=== PATIENT | male | born 1990 | race Caucasian/White ===

== ENCOUNTER 2017-03-18 19:40 | Outpatient (CLI) | payer MEDICAID | END 2017-03-18 19:41 | disposition critical access hospital (66) | DX: R73.09 Other abnormal glucose (principal) | CPT/HCPCS: A0425; A0429 ==

== ENCOUNTER 2017-03-18 19:59 | Emergency (ER) | payer MEDICAID ==
[2017-03-18] MEDS: SODIUM CHLORIDE 0.9% 1,000 ML IV ONE ×2 (20:10→20:37)
[2017-03-18] MEDS ORDERED: SODIUM CHLORIDE 0.9% 1,000 ML IV ONE (20:28)
[2017-03-18] MEDS ORDERED: INSULIN REGULAR HUMAN 100 UNIT/1 ML 10 ML MDV IVP STA ×3 (20:28→22:20)
[2017-03-18] MEDS ORDERED: INSULIN REGULAR HUMAN 100 UNIT/1 ML 10 ML MDV ONE ×3 (20:31→22:22)
== END 2017-03-18 22:34 | disposition home or self-care (01) ==
DX: E10.65 Type 1 diabetes mellitus with hyperglycemia (principal); Z79.4 Long term (current) use of insulin; F90.9 Attention-deficit hyperactivity disorder, unspecified type; F43.10 Post-traumatic stress disorder, unspecified
CPT/HCPCS: 36415; 80053; 80178; 82009; 82803; 83690; 96360; 99283; 99285; J1815

== ENCOUNTER 2018-01-23 15:14 | Emergency (ER) | payer MEDICAID ==
[2018-01-23 15:25] VITALS: BP 135/93
--- NOTE | 2018-01-23 16:40 | ED Physician Documentation ---
PD HPI UPPER EXT INJURY - Stated complaint Stated Complaint: LT HAND LAC - Chief complaint Chief Complaint: Laceration - History obtained from History obtained from: Patient, Family - History of Present Illness Location: Left, Hand Type of injury: Laceration Where injury occurred: Home Timing - onset: How many hours ago (1) Timing - duration: Hours (1) Timing - details: Abrupt onset Pain level max: 4 Pain level now: 2 Improved by: Rest Worsened by: Moving, Palpating Associated symptoms: No: Weakness, Numbness, Tingling, Swelling - Additonal information Additional information: lacerated with a pocket knife while whittling wood today. Pt is right handed. Review of Systems Constitutional: denies: Fever, Chills Skin: denies: Rash Musculoskeletal: denies: Neck pain, Back pain Neurologic: denies: Focal weakness, Numbness, Headache PD PAST MEDICAL HISTORY - Past Medical History Past Medical History: Yes Respiratory: Asthma Neuro: Seizure disorder Endocrine/Autoimmune: Type 2 diabetes GI: GERD, Other Psych: Depression, ADD/ADHD, Post traumatic stress disorder - Past Surgical History Past Surgical History: Yes HEENT: Other - Present Medications Home Medications: Ambulatory Orders Medication Instructions Recorded Confirmed traZODone [Desyrel] 1 tab PO DAILY 10/31/15 01/23/18 [place] Carbonate 600 mg PO BID 01/05/16 01/23/18 cloNIDine [Catapres] 1 tab PO BID 04/17/16 01/23/18 Acetaminophen [Tylenol Extra 500 mg PO PRN PRN 04/28/17 01/23/18 Strength] Albuterol Sulf [Ventolin Hfa 1 - 2 puffs INH PRN PRN 04/28/17 01/23/18 Inhaler] Ascorbic Acid [Vitamin C with Ashlee 1,000 mg PO DAILY 04/28/17 01/23/18 Hips] Cholecalciferol (Vitamin D3) 2,000 unit PO DAILY 04/28/17 01/23/18 [Vitamin D] Flunisolide [Aerospan] 8.9 gm IH PRN PRN 04/28/17 01/23/18 SUMAtriptan succinate [Sumatriptan 100 mg PO PRN PRN 04/28/17 01/23/18 Succinate] Insulin Glargine,Hum.rec.anlog 60 unit SQ BID 11/09/17 01/23/18 [Basaglar Kwikpen U-100] Bupropion HCl [Wellbutrin Xl] 300 mg PO DAILY 01/23/18 01/23/18 lamoTRIgine [LaMICtal] 1 tab PO BID 01/23/18 01/23/18 - Allergies Allergies/Adverse Reactions: Allergies Allergy/AdvReac Type Severity Reaction Status Date / Time No Known Drug Allergies Allergy Verified 01/23/18 16:39 - Social History Does the pt smoke?: No Smoking Status: Never smoker Does the pt drink ETOH?: No Does the pt have substance abuse?: No - Immunizations Immunizations are current?: Yes - POLST Patient has POLST: No PD ED PE NORMAL - Vitals Vital signs reviewed: Yes - General General: Alert and oriented X 3, No acute distress - Derm Derm: Warm and dry - Extremities Extremities: Other (L thumb - dorsum of prox phalanx. 2cm linear laceartion. subcutaneous. NVI. tendon intact. no FB. ) - Neuro Neuro: Alert and oriented X 3 Results - Vitals Vitals: Vital Signs - 24 hr 01/23/18 15:23 Temperature 36.8 C Heart Rate 101 H Respiratory 16 Rate Blood Pressure 135/93 H O2 Saturation 98 Oxygen O2 Source Room air Procedures - Laceration (location) L thumb Length in cm: 2 Wound type: Linear, Into subcut fat, Clean Neurovascular status: Sensory intact, Motor intact, Vascular intact Tendon involvement: Tendon intact. No: Tendon Injury Anesthesia: Lidocaine 2% Wound Preparation: Irrigated copiously NS, Wound explored, To the base. No: FB identified Skin layer closure: Nylon, Interrupted, Size #-0 - enter number (4) Other: Patient tolerated well, No complications, Neurovascular intact, Tetanus UTD Complexity: Simple PD MEDICAL DECISION MAKING - ED course Complexity details: re-evaluated patient, considered differential, d/w patient, d/w family ED course: Patient is a 27-year-old male who presents to the emergency department with a left thumb laceration. This was repaired. Tolerated well. Neurovascularly intact. No tendon injury. No foreign body. Warnings of infection and instructions on wound care given at bedside. Also counseled on how to minimize scarring. Patient counseled regarding signs and symptoms for which I believe and urgent re-evaluation would be necessary. Patient with good understanding of and agreement to plan and is comfortable going home at this time This document was made in part using voice recognition software. While efforts are made to proofread this document, sound alike and grammatical errors may occur. Departure - Departure Disposition: 01 Home, Self Care Clinical Impression: Thumb laceration Qualifiers: Encounter type: initial encounter Damage to nail status: without damage Foreign body presence: without foreign body Laterality: left Qualified Code(s): S61.012A - Laceration without foreign body of left thumb without damage to nail , initial encounter Condition: Good Instructions: ED Laceration Hand Follow-Up: Vicente Ramirez MD [Primary Care Provider] - Within 1 week (in 10 days for suture removal) Comments: Keep the wound clean. The sutures should be removed in 10-14 days with your doctor. Return if you notice redness, swelling or drainage from the wound as these could be signs it may be becoming infected. Discharge Date/Time: 01/23/18 17:19
[2018-01-23] MEDS ORDERED: LIDOCAINE 2% 10 ML MDV SUBQ STA (16:45)
== END 2018-01-23 17:19 | disposition home or self-care (01) ==
LOC: ED 15:14
DX: S61.012A Laceration without foreign body of left thumb without damage to nail, initial encounter (principal); W26.0XXA Contact with knife, initial encounter; Y92.009 Unspecified place in unspecified non-institutional (private) residence as the place of occurrence of the external cause; E11.9 Type 2 diabetes mellitus without complications; Z79.4 Long term (current) use of insulin
CPT/HCPCS: 12001; 99282; 99283

== ENCOUNTER 2019-02-22 17:44 | Outpatient (CLI) | payer MEDICAID | END 2019-02-22 17:45 | disposition EMS.NT | LOC: EMS 17:44 | PROVIDERS: ATTEND Surgery | DX: R56.9 Unspecified convulsions (principal); R07.9 Chest pain, unspecified; F41.9 Anxiety disorder, unspecified ==

== ENCOUNTER 2019-02-23 13:50 | Outpatient (CLI) | payer MEDICAID | END 2019-02-23 13:51 | disposition critical access hospital (66) | LOC: EMS 13:50 | PROVIDERS: ATTEND Surgery | DX: R56.9 Unspecified convulsions (principal); R07.9 Chest pain, unspecified | CPT/HCPCS: A0425; A0429; A0999 ==

== ENCOUNTER 2019-02-23 14:32 | Emergency (ER) | payer MEDICAID ==
--- NOTE | 2019-02-23 14:46 | ED Physician Documentation ---
PD HPI SEIZURE - Stated complaint Stated Complaint: SZ - Chief complaint Chief Complaint: Neuro - History obtained from History obtained from: Patient, Family, EMS - History of Present Illness Timing - onset: Today Witnessed: Witnessed Number of seizures: Lasted minutes (1) Description of seizure activity: Generalized Injury during seizure: None Pain level max: 0 Pain level now: 0 Associated symptoms: Chest pain (typical of his seizures). No: None, Unknown, Headache, Vision changes, Palpitations, Diaphoresis, Dyspnea, Nausea / vomiting History of seizures: Known seizure disorder Contributing factors: Changed meds (carbamazepine 1 month ago). No: Off meds, Out of meds, Low blood sugar, Head injury, Substance abuse, EtOH withdrawal, Benzo withdrawal, Overdose, Fever, Sleep deprivation Treatment CATALOGING ASSISTANT: No: Dextrose, Ativan, Valium, Other - Additional information Additional information: sees Dr. Rodriguez, neurology Review of Systems Ten Systems: 10 systems reviewed and negative Constitutional: denies: Fever, Chills Ears: denies: Ear pain Nose: denies: Rhinorrhea / runny nose, Congestion Throat: denies: Sore throat Cardiac: reports: Chest pain / pressure (after the seizure, typical for him) Respiratory: denies: Dyspnea, Cough, Wheezing GI: denies: Abdominal Pain, Vomiting, Diarrhea : denies: Dysuria Skin: denies: Rash Musculoskeletal: denies: Neck pain, Back pain Neurologic: reports: Seizure. denies: Focal weakness, Numbness, Confused, Altered mental status, Headache PD PAST MEDICAL HISTORY - Past Medical History Past Medical History: Yes Respiratory: Asthma Endocrine/Autoimmune: Type 2 diabetes GI: GERD, Other Psych: Depression, ADD/ADHD, Post traumatic stress disorder - Past Surgical History Past Surgical History: Yes HEENT: Other - Present Medications Home Medications: Ambulatory Orders Medication Instructions Recorded Confirmed traZODone [Desyrel] 1 tab PO DAILY 10/31/15 01/23/18 cloNIDine [Catapres] 1 tab PO BID 04/17/16 01/23/18 Acetaminophen [Tylenol Extra 500 mg PO PRN PRN 04/28/17 01/23/18 Strength] Albuterol Sulf [Ventolin Hfa 1 - 2 puffs INH PRN PRN 04/28/17 01/23/18 Inhaler] Ascorbic Acid [Vitamin C with Ashlee 1,000 mg PO DAILY 04/28/17 01/23/18 Hips] Cholecalciferol (Vitamin D3) 2,000 unit PO DAILY 04/28/17 01/23/18 [Vitamin D] Flunisolide [Aerospan] 8.9 gm IH PRN PRN 04/28/17 01/23/18 SUMAtriptan succinate [Sumatriptan 100 mg PO PRN PRN 04/28/17 01/23/18 Succinate] Insulin Glargine [Lantus Solostar] 60 unit SUBQ BID 01/28/18 01/28/18 Insulin Lispro [Humalog Kwikpen 10 unit SUBQ TID PRN 01/28/18 01/28/18 U-100] Aripiprazole [Abilify] 2 mg PO 02/23/19 02/23/19 Carbamazepine 200 mg PO 02/23/19 02/23/19 Fluoxetine HCl 20 mg PO 02/23/19 02/23/19 Lisdexamfetamine Dimesylate 70 mg PO 02/23/19 02/23/19 [Vyvanse] Magnesium Oxide [Magnesium] 400 mg PO 02/23/19 02/23/19 - Allergies Allergies/Adverse Reactions: Allergies Allergy/AdvReac Type Severity Reaction Status Date / Time No Known Drug Allergies Allergy Verified 02/23/19 14:39 - Social History Does the pt smoke?: No Smoking Status: Never smoker Does the pt drink ETOH?: No Does the pt have substance abuse?: No - Immunizations Immunizations are current?: Yes - POLST Patient has POLST: No PD ED PE NORMAL - Vitals Vital signs reviewed: Yes - General General: Alert and oriented X 3, No acute distress, Well developed/nourished - HEENT HEENT: PERRL, Moist mucous membranes - Neck Neck: Supple, no meningeal sign - Cardiac Cardiac: RRR - Respiratory Respiratory: No respiratory distress, Clear bilaterally - Abdomen Abdomen: Soft, Non tender, Non distended - Derm Derm: Warm and dry - Extremities Extremities: No edema, No calf tenderness / cord - Neuro Neuro: Alert and oriented X 3, powerhouse electrician 2-12 intact, No motor deficit, No sensory deficit, Normal speech Results - Vitals Vitals: Vital Signs - 24 hr 02/23/19 14:34 Temperature 37.1 C Heart Rate 91 Respiratory 20 Rate Blood Pressure 122/76 O2 Saturation 99 Oxygen O2 Source Room air - EKG (time done) 1442 Rate: Rate (enter#) (87) Rhythm: NSR Kite: Normal Intervals: Normal [place] QRS: Normal Ischemia: Normal ST segments Computer interpretation: Agree with computer - Labs Labs: Laboratory Tests 02/23/19 02/23/19 02/23/19 15:10 15:10 15:10 WBC 9.5 RBC 5.40 Hgb 15.9 Hct 45.8 MCV 84.8 MCH 29.4 MCHC 34.7 RDW 13.0 Plt Count 217 MPV 6.8 L Neut # (Auto) 6.7 H Lymph # (Auto) 2.2 [place] # (Auto) 0.4 Eos # (Auto) 0.1 Baso # (Auto) 0.1 Absolute Nucleated RBC 0.01 Nucleated RBC % 0.1 Sodium 138 Potassium 3.9 Chloride 105 Carbon Dioxide 23 Anion Gap 10.0 BUN 30 H Creatinine 1.2 Estimated GFR (MDRD) 73 L Glucose 130 H Calcium 9.0 Phosphorus 3.1 Magnesium 2.4 Total Bilirubin 0.5 AST 21 ALT 27 Alkaline Phosphatase 77 Total Protein 6.9 Albumin 4.1 Globulin 2.8 Albumin/Globulin Ratio 1.5 Lipase 32 Carbamazepine 8.8 PD MEDICAL DECISION MAKING - ED course Complexity details: reviewed results, re-evaluated patient, considered differential, d/w patient, d/w family ED course: 28-year-old male with a history of seizures, presents with increased seizures over the past month. His father contacted Dr. rodriguez while in the emergency department and they recommended stopping the Abilify magnesium. No acute lab abnormalities. Tegretol is within therapeutic levels. Patient and family counseled regarding signs and symptoms for which I believe and urgent re- evaluation would be necessary. Patient with good understanding of and agreement to plan and is comfortable going home at this time This document was made in part using voice recognition software. While efforts are made to proofread this document, sound alike and grammatical errors may occur. Departure - Departure Disposition: 01 Home, Self Care Clinical Impression: Recurrent seizures Condition: Good Instructions: ED Seizure Recurrent Follow-Up: Dakota Rodriguez MD [Physician No Access] - Yesenia Dominguez MD [Primary Care Provider] - Within 1 week Comments: Stop the Abilify and magnesium as directed by Dr. Rodriguez today. Return if he worsens.
[2019-02-23 15:20] LABS: BASOPHILS # (AUTO) 0.1 10^3/uL (0.0-0.1); BASOPHILS % (AUTO) 0.7 %; EOSINOPHILS # (AUTO) 0.1 10^3/uL (0.0-0.7); HGB - HEMOGLOBIN 15.9 g/dL (14.0-18.0); LYMPHOCYTES # (AUTO) 2.2 10^3/uL (1.5-3.5); LYMPHOCYTES % (AUTO) 22.9 %; MEAN CORPUSCULAR HEMOGLOBIN 29.4 pg (27.0-31.0); MEAN CORPUSCULAR HGB CONC 34.7 g/dL (32.0-36.0); MEAN CORPUSCULAR VOLUME 84.8 fL (80.0-94.0); MEAN PLATELET VOLUME 6.8 fL (7.4-11.4); MONOCYTES # (AUTO) 0.4 10^3/uL (0.0-1.0); MONOCYTES % (AUTO) 4.6 %; NEUTROPHILS # (AUTO) 6.7 10^3/uL (1.5-6.6); NEUTROPHILS % (AUTO) 70.8 %; PLT - PLATELET COUNT 217 10^3/uL (130-450); WHITE BLOOD COUNT 9.5 x10^3/uL (4.8-10.8)
[2019-02-23 15:31] LABS: ALBUMIN 4.1 g/dL (3.2-5.5); ALBUMIN/GLOBULIN RATIO 1.5 (1.0-2.2); BILIRUBIN,TOTAL 0.5 mg/dL (0.2-1.0); CREATININE 1.2 mg/dL (0.6-1.2); MAGNESIUM 2.4 mg/dL (1.7-2.8); PHOSPHORUS 3.1 mg/dL (2.5-4.6); TOTAL PROTEIN 6.9 g/dL (6.7-8.2)
[2019-02-23 15:52] LABS: CARBAMAZEPINE (TEGRETOL) 8.8 ug/mL
[2019-02-23 16:05] VITALS: BP 132/61
== END 2019-02-23 16:04 | disposition home or self-care (01) ==
LOC: EDUNIT# → ED 14:32
DX: G40.909 Epilepsy, unspecified, not intractable, without status epilepticus (principal); E11.9 Type 2 diabetes mellitus without complications
CPT/HCPCS: 36415; 80053; 80156; 83690; 83735; 84100; 85025; 93005; 99283

== ENCOUNTER 2019-03-02 14:24 | Emergency (ER) | payer MEDICAID ==
--- NOTE | 2019-03-02 14:58 | ED Physician Documentation ---
PD HPI SEIZURE - Stated complaint Stated Complaint: SZ - Chief complaint Chief Complaint: Neuro - History obtained from History obtained from: Patient - History of Present Illness Timing - onset: Today (He was at his mental health appt, he "locked up" with a "seizure." He was unresponsive x 2 minutes, but no report of shaking or sz like activity. 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 This is similar to last week. Hearing command voices, but no SI/HI.) Review of Systems Ten Systems: 10 systems reviewed and negative Eyes: reports: Reviewed and negative Nose: reports: Reviewed and negative Cardiac: reports: Reviewed and negative Respiratory: reports: Reviewed and negative GI: reports: Reviewed and negative PD PAST MEDICAL HISTORY - Past Medical History Respiratory: Asthma Neuro: Seizure disorder Endocrine/Autoimmune: Type 2 diabetes GI: GERD, Other Psych: Depression, ADD/ADHD, Post traumatic stress disorder - Past Surgical History Past Surgical History: Yes HEENT: Other - Present Medications Home Medications: Ambulatory Orders Medication Instructions Recorded Confirmed traZODone [Desyrel] 1 tab PO DAILY 10/31/15 01/23/18 cloNIDine [Catapres] 1 tab PO BID 04/17/16 01/23/18 Acetaminophen [Tylenol Extra 500 mg PO PRN PRN 04/28/17 01/23/18 Strength] Albuterol Sulf [Ventolin Hfa 1 - 2 puffs INH PRN PRN 04/28/17 01/23/18 Inhaler] Ascorbic Acid [Vitamin C with Ashlee 1,000 mg PO DAILY 04/28/17 01/23/18 Hips] Cholecalciferol (Vitamin D3) 2,000 unit PO DAILY 04/28/17 01/23/18 [Vitamin D] Flunisolide [Aerospan] 8.9 gm IH PRN PRN 04/28/17 01/23/18 SUMAtriptan succinate [Sumatriptan 100 mg PO PRN PRN 04/28/17 01/23/18 Succinate] Insulin Glargine [Lantus Solostar] 60 unit SUBQ BID 01/28/18 01/28/18 Insulin Lispro [Humalog Kwikpen 10 unit SUBQ TID PRN 01/28/18 01/28/18 U-100] Aripiprazole [Abilify] 2 mg PO 02/23/19 02/23/19 Carbamazepine 200 mg PO 02/23/19 02/23/19 Fluoxetine HCl 20 mg PO 02/23/19 02/23/19 Lisdexamfetamine Dimesylate 70 mg PO 02/23/19 02/23/19 [Vyvanse] Magnesium Oxide [Magnesium] 400 mg PO 02/23/19 02/23/19 - Allergies Allergies/Adverse Reactions: Allergies Allergy/AdvReac Type Severity Reaction Status Date / Time No Known Drug Allergies Allergy Verified 02/23/19 14:39 - Social History Does the pt smoke?: No Smoking Status: Never smoker Does the pt drink ETOH?: No Does the pt have substance abuse?: No - Family History Family history: reports: Non contributory - Immunizations Immunizations are current?: Yes - POLST Patient has POLST: No PD ED PE NORMAL - Vitals Vital signs reviewed: Yes - General General: Alert and oriented X 3, No acute distress - HEENT HEENT: PERRL, EOMI, Pharynx benign - Neck Neck: Supple, no meningeal sign, No bony TTP - Cardiac Cardiac: RRR, No murmur - Respiratory Respiratory: No respiratory distress, Clear bilaterally - Abdomen Abdomen: Soft, Non tender - Back Back: No CVA TTP, No spinal TTP - Derm Derm: Normal color, Warm and dry - Neuro Neuro: Alert and oriented X 3, Normal speech - Psych Psych: Other (flat/depressed affect) Results - Vitals Vitals: Vital Signs - 24 hr 03/02/19 03/02/19 03/02/19 14:30 14:34 16:34 Temperature 36.6 C Heart Rate 106 H 104 H 110 H Respiratory 16 18 23 Rate Blood Pressure 154/77 H 128/94 H O2 Saturation 98 99 98 03/02/19 03/02/19 18:00 19:52 Temperature 36.5 C Heart Rate 91 88 Respiratory 25 H 18 Rate Blood Pressure 129/107 H 139/95 H O2 Saturation 97 95 Oxygen O2 Source Room air - Labs Labs: Laboratory Tests 03/02/19 03/02/19 03/02/19 15:30 15:30 15:30 WBC 10.8 RBC 5.80 Hgb 16.9 Hct 48.8 MCV 84.2 MCH 29.2 MCHC 34.6 RDW 13.4 Plt Count 229 MPV 6.9 L Neut # (Auto) 7.7 H Lymph # (Auto) 2.4 [place] # (Auto) 0.4 Eos # (Auto) 0.1 Baso # (Auto) 0.1 Absolute Nucleated RBC 0.02 Nucleated RBC % 0.2 Sodium 136 Potassium 3.9 Chloride 104 Carbon Dioxide 22 Anion Gap 10.0 BUN 24 H Creatinine 1.1 Estimated GFR (MDRD) 80 L Glucose 225 H POC Whole Bld Glucose Calcium 8.8 Magnesium 2.2 Total Bilirubin 0.4 AST 25 ALT 24 Alkaline Phosphatase 76 Total Protein 7.2 Albumin 4.2 Globulin 3.0 Albumin/Globulin Ratio 1.4 Lipase 35 Last Dose Date UNKNOWN Last Dose Time UNKNOWN Salicylates < 6.0 Urine Opiates Screen Ur Oxycodone Screen Urine Methadone Screen Ur Propoxyphene Screen Acetaminophen < 10 L Ur Barbiturates Screen Carbamazepine 8.0 Ur Tricyclics Screen Ur Phencyclidine Scrn Ur Amphetamine Screen U Methamphetamines Scrn U Benzodiazepines Scrn Urine Cocaine Screen U Cannabinoids Screen Ethyl Alcohol < 5.0 03/02/19 03/02/19 15:34 17:30 WBC RBC Hgb Hct MCV MCH MCHC RDW Plt Count MPV Neut # (Auto) Lymph # (Auto) [place]ama # (Auto) Eos # (Auto) Baso # (Auto) Absolute Nucleated RBC Nucleated RBC % Sodium Potassium Chloride Carbon Dioxide Anion Gap BUN Creatinine Estimated GFR (MDRD) Glucose POC Whole Bld Glucose 173 H Calcium Magnesium Total Bilirubin AST ALT Alkaline Phosphatase Total Protein Albumin Globulin Albumin/Globulin Ratio Lipase Last Dose Date Last Dose Time Salicylates Urine Opiates Screen NEGATIVE Ur Oxycodone Screen NEGATIVE Urine Methadone Screen NEGATIVE Ur Propoxyphene Screen NEGATIVE Acetaminophen Ur Barbiturates Screen NEGATIVE Carbamazepine Ur Tricyclics Screen NEGATIVE Ur Phencyclidine Scrn NEGATIVE Ur Amphetamine Screen POSITIVE H U Methamphetamines Scrn NEGATIVE U Benzodiazepines Scrn NEGATIVE Urine Cocaine Screen NEGATIVE U Cannabinoids Screen NEGATIVE Ethyl Alcohol PD MEDICAL DECISION MAKING - ED course ED course: 28-year-old gentleman with history of psychogenic nonepileptic seizures presents after what sounds like 1 of the same. He has an appointment with his neurologist in May, but this seems more like a psychiatric decompensation with increased auditory hallucinations that are command in nature. He feels unstable from this perspective and would like to pursue hospitalization. He was assessed by the manager social services, calls were made and he was accepted to [facility] by Dr. Leftin and cobras were completed. Departure - Departure Disposition: 65 Psych Hosp/Unit DC/Xfer Clinical Impression: Psychogenic nonepileptic seizure Psychosis Qualifiers: Psychosis type: unspecified psychosis type Qualified Code(s): F29 - Unspecified psychosis not due to a substance or known physiological condition Condition: Stable
[2019-03-02 15:42] LABS: BASOPHILS # (AUTO) 0.1 10^3/uL (0.0-0.1); BASOPHILS % (AUTO) 0.6 %; EOSINOPHILS # (AUTO) 0.1 10^3/uL (0.0-0.7); EOSINOPHILS % (AUTO) 1.4 %; HGB - HEMOGLOBIN 16.9 g/dL (14.0-18.0); LYMPHOCYTES # (AUTO) 2.4 10^3/uL (1.5-3.5); LYMPHOCYTES % (AUTO) 22.3 %; MEAN CORPUSCULAR HEMOGLOBIN 29.2 pg (27.0-31.0); MEAN CORPUSCULAR HGB CONC 34.6 g/dL (32.0-36.0); MEAN CORPUSCULAR VOLUME 84.2 fL (80.0-94.0); MEAN PLATELET VOLUME 6.9 fL (7.4-11.4); MONOCYTES # (AUTO) 0.4 10^3/uL (0.0-1.0); NEUTROPHILS # (AUTO) 7.7 10^3/uL (1.5-6.6); NEUTROPHILS % (AUTO) 71.7 %; PLT - PLATELET COUNT 229 10^3/uL (130-450); RED CELL DISTRIBUTION WIDTH 13.4 % (12.0-15.0); WHITE BLOOD COUNT 10.8 x10^3/uL (4.8-10.8)
[2019-03-02 15:44] LABS: MUDS CUTOFF CONCENTRATIONS CUTOFF CONC BELOW:
[2019-03-02 15:52] LABS: ALBUMIN 4.2 g/dL (3.2-5.5); ALBUMIN/GLOBULIN RATIO 1.4 (1.0-2.2); ALKALINE PHOSPHATASE 76 IU/L (42-121); ALT ALANINE AMINOTRANSFERASE 24 IU/L (10-60); AST ASPARTATE AMINOTRANSFERASE 25 IU/L (10-42); BILIRUBIN,TOTAL 0.4 mg/dL (0.2-1.0); BUN - BLOOD UREA NITROGEN 24 mg/dL (6-20); CALCIUM 8.8 mg/dL (8.5-10.3); CARBON DIOXIDE - CO2 22 mmol/L (21-32); CHLORIDE 104 mmol/L (101-111); CREATININE 1.1 mg/dL (0.6-1.2); GFR - MDRD 80 (>89); GLUCOSE 225 mg/dL (70-100); LIPASE 35 U/L (22-51); MAGNESIUM 2.2 mg/dL (1.7-2.8); SODIUM 136 mmol/L (135-145); TOTAL PROTEIN 7.2 g/dL (6.7-8.2)
[2019-03-02 15:57] LABS: AMPHETAMINE SCREEN,URINE POSITIVE (NEGATIVE); BENZODIAZEPINES SCREEN, URINE NEGATIVE (NEGATIVE); COCAINE SCREEN URINE NEGATIVE (NEGATIVE); METHADONE SCREEN, URINE NEGATIVE (NEGATIVE); METHAMPHETAMINES SCREEN, URINE NEGATIVE (NEGATIVE); OPIATE SCREEN, URINE NEGATIVE (NEGATIVE); OXYCODONE SCREEN, URINE NEGATIVE (NEGATIVE); PROPOXYPHENE SCREEN, URINE NEGATIVE (NEGATIVE); TRICYCLIC ANTIDEPRESSANT,URINE NEGATIVE (NEGATIVE)
[2019-03-02 16:01] LABS: ACETAMINOPHEN < 10 ug/mL (10-30); SALICYLATE < 6.0 mg/dL
[2019-03-02 20:43] VITALS: BP 137/63
== END 2019-03-02 21:48 ==
LOC: ED 14:24
DX: G40.409 Other generalized epilepsy and epileptic syndromes, not intractable, without status epilepticus (principal); F29 Unspecified psychosis not due to a substance or known physiological condition; E11.9 Type 2 diabetes mellitus without complications; Z79.4 Long term (current) use of insulin
CPT/HCPCS: 36415; 80053; 80156; 80306; 80307; 80320; 80329; 83690; 83735; 85025; 99284

== ENCOUNTER 2019-03-10 14:26 | Outpatient (CLI) | payer MEDICAID ==
--- NOTE | 2019-03-10 14:45 | XRAY Report ---
Reason: SHOULDER PAIN Procedure Date: 03/10/2019 Accession Number: [id number] / [id number] Procedure: WCP - Shoulder 3 View LT CPT Code: FULL RESULT: EXAM: LEFT SHOULDER RADIOGRAPHY EXAM DATE: 03/10/2019 02:40 PM. CLINICAL HISTORY: SHOULDER PAIN. COMPARISON: None. TECHNIQUE: 3 views. FINDINGS: Bones: Normal. No fracture or bone lesion. Joints: The glenohumeral and acromioclavicular joints are normal. Soft tissues: The visualized hemithorax is unremarkable. No soft tissue swelling. IMPRESSION: Normal shoulder radiography. RADIA
== END 2019-03-10 14:27 | disposition home or self-care (01) ==
LOC: DI.WCP 14:26
PROVIDERS: ATTEND Family Medicine
DX: M25.512 Pain in left shoulder (principal)

== ENCOUNTER 2019-03-31 16:15 | Outpatient (CLI) | payer MEDICAID | END 2019-03-31 16:16 | disposition critical access hospital (66) | LOC: EMS 16:15 | PROVIDERS: ATTEND Surgery | DX: R56.9 Unspecified convulsions (principal); R73.09 Other abnormal glucose; R07.9 Chest pain, unspecified | CPT/HCPCS: A0425; A0429; A0999 ==

== ENCOUNTER 2019-03-31 16:21 | Emergency (ER) | payer MEDICAID ==
[2019-03-31 16:34] VITALS: BP 137/78
--- NOTE | 2019-03-31 17:12 | ED Physician Documentation ---
PD HPI SEIZURE - Stated complaint Stated Complaint: POSSIBLE SZ/ CP - Chief complaint Chief Complaint: MHE - History obtained from History obtained from: Patient, Family - History of Present Illness Timing - onset: Today Witnessed: Witnessed Number of seizures: Single Description of seizure activity: Generalized Injury during seizure: None Associated symptoms: Other (anger) History of seizures: Known seizure disorder Contributing factors: Other (emotional challenge) Similar symptoms before: Diagnosis (PNES) Recently seen: Clinic - Additional information Additional information: 29-year-old male with a history of psychosis and depression has a history of psychogenic nonepileptic seizures was in the office at [facility] doing a tele-psych visit when he developed anger toward the psychiatrist as he reports things were not going well they were butting heads. He states that as this happened he became emotional and had a seizure. His father was present in the room states that he stiffened up and became unresponsive for about 2 minutes. The father states he has seen worse seizures with this and he has had these episodes for about 5 years. He has had evaluation done he has been diagnosed with psychogenic nonepileptic seizures. The patient does not feel further work- up or intervention is necessary at this point he feels that he has the trigger for this seizure today. The father confirms this and indicates that he has seen worse. Review of Systems Constitutional: denies: Fever, Chills Eyes: denies: Decreased vision Ears: denies: Ear pain Nose: denies: Congestion Throat: denies: Sore throat Cardiac: denies: Chest pain / pressure, Palpitations Respiratory: denies: Dyspnea, Cough GI: reports: Diarrhea. denies: Abdominal Pain, Nausea, Vomiting : denies: Dysuria, Frequency Skin: denies: Rash Musculoskeletal: denies: Neck pain, Back pain, Extremity pain Neurologic: denies: Generalized weakness, Focal weakness, Numbness Psychiatric: reports: Depressed, Hallucinations, Anxiety Endocrine: reports: Polydypsia, Polyuria PD PAST MEDICAL HISTORY - Past Medical History Respiratory: Asthma Neuro: Seizure disorder Endocrine/Autoimmune: Type 2 diabetes GI: GERD, Other Psych: Depression, ADD/ADHD, Post traumatic stress disorder - Past Surgical History Past Surgical History: Yes HEENT: Other - Present Medications Home Medications: Ambulatory Orders Medication Instructions Recorded Confirmed traZODone [Desyrel] 1 tab PO DAILY 10/31/15 03/31/19 cloNIDine [Catapres] 1 tab PO BID 04/17/16 03/31/19 Acetaminophen [Tylenol Extra 500 mg PO PRN PRN 04/28/17 03/31/19 Strength] Albuterol Sulf [Ventolin Hfa 1 - 2 puffs INH PRN PRN 04/28/17 03/31/19 Inhaler] Ascorbic Acid [Vitamin C with Ashlee 1,000 mg PO DAILY 04/28/17 03/31/19 Hips] Cholecalciferol (Vitamin D3) 2,000 unit PO DAILY 04/28/17 03/31/19 [Vitamin D] Carbamazepine 200 mg PO DAILY 02/23/19 03/31/19 Fluoxetine HCl 20 mg PO DAILY 02/23/19 03/31/19 Lisdexamfetamine Dimesylate 70 mg PO DAILY 02/23/19 03/31/19 [Vyvanse] Metformin HCl [Fortamet] 1 tab PO BID 03/31/19 03/31/19 Ziprasidone HCl 1 tab PO BID 03/31/19 03/31/19 - Allergies Allergies/Adverse Reactions: Allergies Allergy/AdvReac Type Severity Reaction Status Date / Time No Known Drug Allergies Allergy Verified 03/31/19 16:34 - Social History Does the pt smoke?: No Smoking Status: Never smoker Does the pt drink ETOH?: No Does the pt have substance abuse?: No - Immunizations Immunizations are current?: Yes - POLST Patient has POLST: No PD ED PE NORMAL - Vitals Vital signs reviewed: Yes (normal ) - General General: Alert and oriented X 3, No acute distress, Well developed/nourished - HEENT HEENT: Atraumatic, PERRL, EOMI, Ears normal, Moist mucous membranes, Pharynx benign, Dentition benign - Neck Neck: Supple, no meningeal sign, No bony TTP - Cardiac Cardiac: RRR, No murmur - Respiratory Respiratory: No respiratory distress, Clear bilaterally - Abdomen Abdomen: Soft, Non tender - Back Back: No CVA TTP, No spinal TTP - Derm Derm: Normal color, Warm and dry, No rash - Extremities Extremities: No deformity, No edema - Neuro Neuro: Alert and oriented X 3, lead consultant 2-12 intact, No motor deficit, No sensory deficit, Normal speech Eye Opening: Spontaneous Motor: Obeys Commands Verbal: Oriented GCS Score: 15 - Psych Psych: Normal mood, Normal affect Results - Vitals Vitals: Vital Signs - 24 hr 03/31/19 16:25 Temperature 36.7 C Heart Rate 99 Respiratory 17 Rate Blood Pressure 137/78 H O2 Saturation 98 Oxygen O2 Source Room air PD MEDICAL DECISION MAKING - ED course Complexity details: considered differential, d/w patient, d/w family ED course: 29-year-old male with a history of psychogenic nonepileptic seizures has had a seizure in the psychiatrist office today and he is [facility] to [facility]. The patient and his father do not believe any specific detailed evaluation is necessary as the patient has had these for years. There was no abnormality to this specific seizure. I did asked the patient if he felt that hospitalization was necessary and both he and his father felt that this was not necessary and at about the time he was being discharged the patient changed his mind and felt that maybe he would benefit from hospitalization. The social media marketing specialist had already gone home I explained this to the patient and he and his father felt it would be more appropriate to return tomorrow. The patient is not suicidal or homicidal and he is voluntary. He is discharged home and will follow up tomorrow if he feels similar. Departure - Departure Disposition: 01 Home, Self Care Clinical Impression: Psychogenic nonepileptic seizure Condition: Stable Instructions: ED Stress React Follow-Up: Yesenia Dominguez MD [Primary Care Provider] - Comments: By the way happy birthday. Discharge Date/Time: 03/31/19 17:34
== END 2019-03-31 17:34 | disposition home or self-care (01) ==
LOC: EDUNIT# → ED 16:21
DX: G40.89 Other seizures (principal); F32.9 Major depressive disorder, single episode, unspecified; E11.9 Type 2 diabetes mellitus without complications; Z79.84 Long term (current) use of oral hypoglycemic drugs
CPT/HCPCS: 99282; 99283

== ENCOUNTER 2019-04-05 12:54 | Outpatient (CLI) | payer MEDICAID ==
--- NOTE | 2019-04-05 14:30 | MRI Report ---
Reason: FACIAL NUMBNESS,DISSOCIATIVE CONVULSIONS,SEIZURE D Procedure Date: 04/05/2019 Accession Number: [id number] / [id number] Procedure: MRI - Brain W/O CPT Code: FULL RESULT: EXAM: MRI BRAIN WITHOUT CONTRAST EXAM DATE: 04/05/2019 02:04 PM. CLINICAL HISTORY: Facial numbness. Convulsions. Reported daily seizures. COMPARISON: None. TECHNIQUE: Multiplanar, multisequence T1-weighted and fluid-sensitive MR sequences of the brain were performed. Sequences optimized for epilepsy evaluation. Other: None. IV Contrast: None. FINDINGS: Brain Volume: Normal for age. Parenchyma/Dura: No acute hemorrhage or stroke. No midline shift or abnormal subdural fluid collection. No midline cerebral developmental anomaly or Chiari malformation. No typical MRI findings of mesial temporal sclerosis. 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 No volume loss to suggest remote brain injury. On coronal T2 FLAIR reference images 34 and 35 of series 801 this region of abnormal T2 hyperintensity at the periphery of the parietal lobe measures about 7 x 17 mm. Otherwise unremarkable signal and morphology of the brain. Ventricles/Cisterns: No hydrocephalus. No abnormal extra-axial fluid collection or hemorrhage. Orbits: Symmetric and unremarkable. Sella Turcica: The pituitary gland, cavernous sinuses, suprasellar cistern and optic chiasm are unremarkable. IAC: Symmetric and unremarkable. Vasculature: Normal signal flow void is seen in the major arterial structures at the skull base. Sinuses: No acute appearing sinus disease. Bones: No focal pathologic appearing marrow signal changes. Other: None. IMPRESSION: 1. Abnormal cortical thickening with T2 hyperintensity in the left parietal lobe consistent with a cortical dysplasia. This may be an epileptogenic focus. No evidence for acute infarct or inflammation. Findings are not typical of previous brain injury. Neoplasm is a less likely consideration. Additional imaging could include contrast-enhanced brain MRI imaging. 2. Intracranial MRI findings are otherwise unremarkable. No typical findings of mesial temporal sclerosis. [facility]
== END 2019-04-05 12:55 | disposition home or self-care (01) ==
LOC: DI 12:54
PROVIDERS: ATTEND Family Medicine
DX: R90.89 Other abnormal findings on diagnostic imaging of central nervous system (principal); R20.9 Unspecified disturbances of skin sensation; F44.5 Conversion disorder with seizures or convulsions; R56.9 Unspecified convulsions; G25.3 Myoclonus; H53.149 Visual discomfort, unspecified
CPT/HCPCS: 70551

== ENCOUNTER 2019-04-06 10:30 | Emergency (ER) | payer MEDICAID ==
[2019-04-06 10:57] LABS: MUDS CUTOFF CONCENTRATIONS CUTOFF CONC BELOW:
[2019-04-06 10:59] LABS: BILIRUBIN,URINE NEGATIVE (NEGATIVE); GLUCOSE, URINE (UA) 250 mg/dL (NEGATIVE); KETONES,URINE (UA) NEGATIVE (NEGATIVE); LEUKOCYTE ESTERASE, URINE NEGATIVE (NEGATIVE); NITRITE,URINE NEGATIVE (NEGATIVE); OCCULT BLOOD,URINE NEGATIVE (NEGATIVE); PROTEIN,URINE NEGATIVE (NEGATIVE); UROBILINOGEN,URINE 0.2 (NORMAL) E.U./dL (NORMAL)
[2019-04-06 11:02] LABS: BASOPHILS % (AUTO) 0.4 %; EOSINOPHILS # (AUTO) 0.2 10^3/uL (0.0-0.7); EOSINOPHILS % (AUTO) 1.5 %; HGB - HEMOGLOBIN 16.5 g/dL (14.0-18.0); LYMPHOCYTES # (AUTO) 2.7 10^3/uL (1.5-3.5); LYMPHOCYTES % (AUTO) 22.4 %; MEAN CORPUSCULAR HEMOGLOBIN 29.1 pg (27.0-31.0); MEAN CORPUSCULAR HGB CONC 34.5 g/dL (32.0-36.0); MEAN CORPUSCULAR VOLUME 84.2 fL (80.0-94.0); MEAN PLATELET VOLUME 6.6 fL (7.4-11.4); MONOCYTES # (AUTO) 0.5 10^3/uL (0.0-1.0); MONOCYTES % (AUTO) 4.4 %; NEUTROPHILS # (AUTO) 8.6 10^3/uL (1.5-6.6); NEUTROPHILS % (AUTO) 71.3 %; PLT - PLATELET COUNT 218 10^3/uL (130-450); RED BLOOD COUNT 5.67 10^6/uL (4.70-6.10); RED CELL DISTRIBUTION WIDTH 12.8 % (12.0-15.0)
[2019-04-06 11:03] LABS: CLARITY,URINE CLEAR (CLEAR)
[2019-04-06 11:13] LABS: ACETAMINOPHEN 12 ug/mL (10-30); ALBUMIN 4.1 g/dL (3.2-5.5); ALBUMIN/GLOBULIN RATIO 1.5 (1.0-2.2); ALKALINE PHOSPHATASE 80 IU/L (42-121); ALT ALANINE AMINOTRANSFERASE 19 IU/L (10-60); AST ASPARTATE AMINOTRANSFERASE 24 IU/L (10-42); BILIRUBIN,TOTAL 0.2 mg/dL (0.2-1.0); BUN - BLOOD UREA NITROGEN 27 mg/dL (6-20); CALCIUM 9.3 mg/dL (8.5-10.3); CARBON DIOXIDE - CO2 20 mmol/L (21-32); CHLORIDE 100 mmol/L (101-111); CREATININE 1.5 mg/dL (0.6-1.2); GFR - MDRD 56 (>89); GLUCOSE 239 mg/dL (70-100); LIPASE 39 U/L (22-51); SALICYLATE < 6.0 mg/dL; SODIUM 135 mmol/L (135-145); TOTAL PROTEIN 6.9 g/dL (6.7-8.2)
[2019-04-06 11:15] LABS: AMPHETAMINE SCREEN,URINE POSITIVE (NEGATIVE); BENZODIAZEPINES SCREEN, URINE POSITIVE (NEGATIVE); COCAINE SCREEN URINE NEGATIVE (NEGATIVE); METHADONE SCREEN, URINE NEGATIVE (NEGATIVE); METHAMPHETAMINES SCREEN, URINE NEGATIVE (NEGATIVE); OPIATE SCREEN, URINE NEGATIVE (NEGATIVE); OXYCODONE SCREEN, URINE NEGATIVE (NEGATIVE); PROPOXYPHENE SCREEN, URINE NEGATIVE (NEGATIVE); TRICYCLIC ANTIDEPRESSANT,URINE NEGATIVE (NEGATIVE)
--- NOTE | 2019-04-06 12:43 | ED Physician Documentation ---
PD HPI MHE - Stated complaint Stated Complaint: MHE - Chief complaint Chief Complaint: MHE - History obtained from History obtained from: Patient, Family - History of Present Illness Primary symptom: Suicidal ideation Timing - onset: Other ("for a while") Pain level max: 0 Pain level now: 0 Recently seen: Emergency Dept - Additional information Additional information: states worsening since increased geodon last week. Requesting inpatient care. Review of Systems Ten Systems: 10 systems reviewed and negative Constitutional: denies: Fever, Chills Respiratory: denies: Cough GI: denies: Nausea, Vomiting, Diarrhea Skin: denies: Rash Musculoskeletal: denies: Neck pain, Back pain Neurologic: denies: Headache Psychiatric: reports: Depressed, Suicidal, Hallucinations, Insomnia PD PAST MEDICAL HISTORY - Past Medical History Past Medical History: Yes Respiratory: Asthma Neuro: Seizure disorder Endocrine/Autoimmune: Type 2 diabetes GI: GERD, Other Psych: Depression, ADD/ADHD, Post traumatic stress disorder - Past Surgical History Past Surgical History: Yes HEENT: Other - Present Medications Home Medications: Ambulatory Orders Medication Instructions Recorded Confirmed traZODone [Desyrel] 1 tab PO DAILY 10/31/15 03/31/19 cloNIDine [Catapres] 1 tab PO BID 04/17/16 03/31/19 Acetaminophen [Tylenol Extra 500 mg PO PRN PRN 04/28/17 03/31/19 Strength] Albuterol Sulf [Ventolin Hfa 1 - 2 puffs INH PRN PRN 04/28/17 03/31/19 Inhaler] Ascorbic Acid [Vitamin C with Ashlee 1,000 mg PO DAILY 04/28/17 03/31/19 Hips] Cholecalciferol (Vitamin D3) 2,000 unit PO DAILY 04/28/17 03/31/19 [Vitamin D] Carbamazepine 200 mg PO DAILY 02/23/19 03/31/19 Fluoxetine HCl 20 mg PO DAILY 02/23/19 03/31/19 Lisdexamfetamine Dimesylate 70 mg PO DAILY 02/23/19 03/31/19 [Vyvanse] Metformin HCl [Fortamet] 1 tab PO BID 03/31/19 03/31/19 Ziprasidone HCl 1 tab PO BID 03/31/19 03/31/19 - Allergies Allergies/Adverse Reactions: Allergies Allergy/AdvReac Type Severity Reaction Status Date / Time No Known Drug Allergies Allergy Verified 04/06/19 10:43 - Social History Does the pt smoke?: No Smoking Status: Never smoker Does the pt drink ETOH?: No Does the pt have substance abuse?: No - Immunizations Immunizations are current?: Yes - POLST Patient has POLST: No PD ED PE NORMAL - Vitals Vital signs reviewed: Yes - General General: Alert and oriented X 3, No acute distress, Well developed/nourished - HEENT HEENT: PERRL, Moist mucous membranes - Neck Neck: Supple, no meningeal sign - Cardiac Cardiac: RRR, Strong equal pulses - Respiratory Respiratory: No respiratory distress, Clear bilaterally - Abdomen Abdomen: Soft, Non tender, Non distended - Derm Derm: Warm and dry, No rash - Extremities Extremities: No edema, No calf tenderness / cord - Neuro Neuro: Alert and oriented X 3 - Psych Psych: Normal mood, Normal affect Results - Vitals Vitals: Vital Signs - 24 hr 04/06/19 10:41 Temperature 37.1 C Heart Rate 105 H Respiratory 20 Rate Blood Pressure 149/78 H O2 Saturation 99 Oxygen O2 Source Room air - Labs Labs: Laboratory Tests 04/06/19 04/06/19 04/06/19 10:40 10:55 10:55 WBC 12.0 H RBC 5.67 Hgb 16.5 Hct 47.8 MCV 84.2 MCH 29.1 MCHC 34.5 RDW 12.8 Plt Count 218 MPV 6.6 L Neut # (Auto) 8.6 H Lymph # (Auto) 2.7 [place] # (Auto) 0.5 Eos # (Auto) 0.2 Baso # (Auto) 0.0 Absolute Nucleated RBC 0.06 Nucleated RBC % 0.5 Sodium 135 Potassium 4.3 Chloride 100 L Carbon Dioxide 20 L Anion Gap 15.0 H BUN 27 H Creatinine 1.5 H Estimated GFR (MDRD) 56 L Glucose 239 H Calcium 9.3 Total Bilirubin 0.2 AST 24 ALT 19 Alkaline Phosphatase 80 Total Protein 6.9 Albumin 4.1 Globulin 2.8 Albumin/Globulin Ratio 1.5 Lipase 39 TSH Urine Color YELLOW Urine Clarity CLEAR Urine pH 6.0 Ur Specific [place] 1.015 Urine Protein NEGATIVE Urine Glucose (UA) 250 H Urine Ketones NEGATIVE Urine Occult Blood NEGATIVE Urine Nitrite NEGATIVE Urine Bilirubin NEGATIVE Urine Urobilinogen 0.2 (NORMAL) Ur Leukocyte Esterase NEGATIVE Ur Microscopic Review NOT INDICATED Urine Culture Comments NOT INDICATED Salicylates < 6.0 Urine Opiates Screen NEGATIVE Ur Oxycodone Screen NEGATIVE Urine Methadone Screen NEGATIVE Ur Propoxyphene Screen NEGATIVE Acetaminophen 12 Ur Barbiturates Screen NEGATIVE Ur Tricyclics Screen NEGATIVE Ur Phencyclidine Scrn NEGATIVE Ur Amphetamine Screen POSITIVE H U Methamphetamines Scrn NEGATIVE U Benzodiazepines Scrn POSITIVE H Urine Cocaine Screen NEGATIVE U Cannabinoids Screen NEGATIVE Ethyl Alcohol < 5.0 04/06/19 10:55 WBC RBC Hgb Hct MCV MCH MCHC RDW Plt Count MPV Neut # (Auto) Lymph # (Auto) [place] # (Auto) Eos # (Auto) Baso # (Auto) Absolute Nucleated RBC Nucleated RBC % Sodium Potassium Chloride Carbon Dioxide Anion Gap BUN Creatinine Estimated GFR (MDRD) Glucose Calcium Total Bilirubin AST ALT Alkaline Phosphatase Total Protein Albumin Globulin Albumin/Globulin Ratio Lipase TSH 3.43 Urine Color Urine Clarity Urine pH Ur Specific [place] Urine Protein Urine Glucose (UA) Urine Ketones Urine Occult Blood Urine Nitrite Urine Bilirubin Urine Urobilinogen Ur Leukocyte Esterase Ur Microscopic Review Urine Culture Comments Salicylates Urine Opiates Screen Ur Oxycodone Screen Urine Methadone Screen Ur Propoxyphene Screen Acetaminophen Ur Barbiturates Screen Ur Tricyclics Screen Ur Phencyclidine Scrn Ur Amphetamine Screen U Methamphetamines Scrn U Benzodiazepines Scrn Urine Cocaine Screen U Cannabinoids Screen Ethyl Alcohol PD MEDICAL DECISION MAKING - ED course Complexity details: reviewed results, re-evaluated patient, considered differential, d/w patient, d/w family ED course: medically clear for psychiatric care. Social work consulted. Patient will go to the [facility]. Patient and family are comfortable with this plan. This document was made in part using voice recognition software. While efforts are made to proofread this document, sound alike and grammatical errors may occur. Departure - Departure Disposition: 01 Home, Self Care Clinical Impression: Suicidal ideation, Hallucinations Condition: Stable Instructions: ED Depression Follow-Up: Yesenia Dominguez MD [Primary Care Provider] - Within 1 week Comments: You are to go directly to the [facility] today. Return if you worsen.
[2019-04-06 17:44] VITALS: BP 148/77
== END 2019-04-06 18:22 | disposition home or self-care (01) ==
LOC: ED 10:30
DX: R45.851 Suicidal ideations (principal); R44.3 Hallucinations, unspecified; E11.9 Type 2 diabetes mellitus without complications; Z79.84 Long term (current) use of oral hypoglycemic drugs
CPT/HCPCS: 36415; 80053; 80306; 80307; 80320; 80329; 81001; 81003; 83690; 84443; 85025; 87086; 93005; 99283

== ENCOUNTER 2019-05-02 16:35 | Emergency (ER) | payer MEDICAID ==
[2019-05-02 17:01] LABS: BASOPHILS # (AUTO) 0.1 10^3/uL (0.0-0.1); BASOPHILS % (AUTO) 0.5 %; EOSINOPHILS # (AUTO) 0.2 10^3/uL (0.0-0.7); EOSINOPHILS % (AUTO) 1.3 %; HGB - HEMOGLOBIN 17.3 g/dL (14.0-18.0); LYMPHOCYTES # (AUTO) 2.8 10^3/uL (1.5-3.5); LYMPHOCYTES % (AUTO) 21.2 %; MEAN CORPUSCULAR HEMOGLOBIN 29.4 pg (27.0-31.0); MEAN CORPUSCULAR HGB CONC 34.6 g/dL (32.0-36.0); MEAN CORPUSCULAR VOLUME 85.1 fL (80.0-94.0); MEAN PLATELET VOLUME 6.7 fL (7.4-11.4); MONOCYTES # (AUTO) 0.7 10^3/uL (0.0-1.0); MONOCYTES % (AUTO) 5.6 %; NEUTROPHILS # (AUTO) 9.4 10^3/uL (1.5-6.6); NEUTROPHILS % (AUTO) 71.4 %; PLT - PLATELET COUNT 241 10^3/uL (130-450); RED BLOOD COUNT 5.87 10^6/uL (4.70-6.10); RED CELL DISTRIBUTION WIDTH 13.2 % (12.0-15.0); WHITE BLOOD COUNT 13.1 x10^3/uL (4.8-10.8)
[2019-05-02 17:05] LABS: MUDS CUTOFF CONCENTRATIONS CUTOFF CONC BELOW:
[2019-05-02 17:07] LABS: BILIRUBIN,URINE NEGATIVE (NEGATIVE); GLUCOSE, URINE (UA) >=1000 mg/dL (NEGATIVE); KETONES,URINE (UA) TRACE mg/dL (NEGATIVE); LEUKOCYTE ESTERASE, URINE NEGATIVE (NEGATIVE); NITRITE,URINE NEGATIVE (NEGATIVE); OCCULT BLOOD,URINE NEGATIVE (NEGATIVE); PH,URINE 5.5 PH (5.0-7.5); PROTEIN,URINE NEGATIVE (NEGATIVE); UROBILINOGEN,URINE 0.2 (NORMAL) E.U./dL (NORMAL)
--- NOTE | 2019-05-02 17:07 | ED Physician Documentation ---
PD HPI MHE - Stated complaint Stated Complaint: SI - Chief complaint Chief Complaint: MHE - History obtained from History obtained from: Patient, Family (dad) - History of Present Illness Primary symptom: Suicidal ideation (29-year-old gentleman with history of psychogenic nonepileptic seizures, schizoaffective disorder, and type 2 diabetes presents with a request for mental health hospitalization because he is having a lot of command hallucinations. Specifically his grandparents are telling him in his head that he is worthless and he should kill himself. He has uncontrolled blood sugars. He has been compliant with his medications. Last psychiatric admission was about a month ago at which time his Geodon was increased.) Review of Systems Ten Systems: 10 systems reviewed and negative Constitutional: reports: Reviewed and negative Throat: reports: Reviewed and negative Cardiac: reports: Reviewed and negative Respiratory: reports: Reviewed and negative PD PAST MEDICAL HISTORY - Past Medical History Past Medical History: No Cardiovascular: None Respiratory: Asthma Neuro: Seizure disorder Endocrine/Autoimmune: Type 2 diabetes GI: GERD, Other : None HEENT: None Psych: Depression, ADD/ADHD, Post traumatic stress disorder Musculoskeletal: None Derm: None - Past Surgical History Past Surgical History: Yes HEENT: Other - Present Medications Home Medications: Ambulatory Orders Medication Instructions Recorded Confirmed RX: traZODone [Desyrel] 1 tab PO DAILY 10/31/15 03/31/19 cloNIDine [Catapres] 1 tab PO BID 04/17/16 03/31/19 Acetaminophen [Tylenol Extra 500 mg PO PRN PRN 04/28/17 03/31/19 Strength] Albuterol Sulf [Ventolin Hfa 1 - 2 puffs INH PRN PRN 04/28/17 03/31/19 Inhaler] Ascorbic Acid [Vitamin C with Ashlee 1,000 mg PO DAILY 04/28/17 03/31/19 Hips] Cholecalciferol (Vitamin D3) 2,000 unit PO DAILY 04/28/17 03/31/19 [Vitamin D] Lisdexamfetamine Dimesylate 70 mg PO DAILY 02/23/19 03/31/19 [Vyvanse] RX: Carbamazepine 200 mg PO DAILY 02/23/19 03/31/19 RX: Fluoxetine HCl 20 mg PO DAILY 02/23/19 03/31/19 RX: Metformin HCl [Fortamet] 1 tab PO BID 03/31/19 03/31/19 RX: Ziprasidone HCl 1 tab PO BID 03/31/19 03/31/19 - Allergies Allergies/Adverse Reactions: Allergies Allergy/AdvReac Type Severity Reaction Status Date / Time No Known Drug Allergies Allergy Verified 05/02/19 16:44 - Social History Does the pt smoke?: No Smoking Status: Never smoker Does the pt drink ETOH?: No Does the pt have substance abuse?: No - Family History Family history: reports: Non contributory - Immunizations Immunizations are current?: Yes - POLST Patient has POLST: No PD ED PE NORMAL - Vitals Vital signs reviewed: Yes - General General: Alert and oriented X 3 - HEENT HEENT: PERRL, EOMI - Neck Neck: Supple, no meningeal sign, No bony TTP - Cardiac Cardiac: RRR, No murmur - Respiratory Respiratory: No respiratory distress, Clear bilaterally - Abdomen Abdomen: Soft, Non tender - Back Back: No CVA TTP, No spinal TTP - Derm Derm: Normal color, Warm and dry - Extremities Extremities: No edema, No calf tenderness / cord - Neuro Neuro: Alert and oriented X 3, Normal speech - Psych Psych: Other (Slightly blunted affect with mediocre eye contact) Results - Vitals Vitals: Vital Signs - 24 hr 05/02/19 05/02/19 05/02/19 16:40 19:19 21:14 Temperature 36.6 C 36.4 C L 36.5 C Heart Rate 115 H 89 90 Respiratory 18 16 18 Rate Blood Pressure 145/92 H 128/93 H 142/78 H O2 Saturation 96 99 98 05/03/19 00:04 Temperature 36.4 C L Heart Rate 100 Respiratory 16 Rate Blood Pressure 133/80 H O2 Saturation 96 Oxygen O2 Source Room air - Labs Labs: Laboratory Tests 05/02/19 05/02/19 05/02/19 14:15 16:50 16:50 WBC 13.1 H RBC 5.87 Hgb 17.3 Hct 49.9 MCV 85.1 MCH 29.4 MCHC 34.6 RDW 13.2 Plt Count 241 MPV 6.7 L Neut # (Auto) 9.4 H Lymph # (Auto) 2.8 [place] # (Auto) 0.7 Eos # (Auto) 0.2 Baso # (Auto) 0.1 Absolute Nucleated RBC 0.05 Nucleated RBC % 0.4 Sodium 134 L Potassium 4.5 Chloride 98 L Carbon Dioxide 21 Anion Gap 15.0 H BUN 24 H Creatinine 1.3 H Estimated GFR (MDRD) 66 L Glucose 435 H POC Whole Bld Glucose Calcium 10.0 Total Bilirubin 0.5 AST 24 ALT 26 Alkaline Phosphatase 95 Total Protein 7.8 Albumin 4.6 Globulin 3.2 Albumin/Globulin Ratio 1.4 Lipase 111 H TSH Urine Color Urine Clarity Urine pH Ur Specific [place] Urine Protein Urine Glucose (UA) Urine Ketones Urine Occult Blood Urine Nitrite Urine Bilirubin Urine Urobilinogen Ur Leukocyte Esterase Ur Microscopic Review Urine Culture Comments Last Dose Date UNKNOWN Last Dose Time UNKNOWN Salicylates < 6.0 Urine Opiates Screen Ur Oxycodone Screen Urine Methadone Screen Ur Propoxyphene Screen Acetaminophen < 10 L Ur Barbiturates Screen Carbamazepine 7.1 Ur Tricyclics Screen Ur Phencyclidine Scrn Ur Amphetamine Screen U Methamphetamines Scrn U Benzodiazepines Scrn Urine Cocaine Screen U Cannabinoids Screen Ethyl Alcohol < 5.0 05/02/19 05/02/19 05/02/19 16:50 17:00 18:52 WBC RBC Hgb Hct MCV MCH MCHC RDW Plt Count MPV Neut # (Auto) Lymph # (Auto) [place] # (Auto) Eos # (Auto) Baso # (Auto) Absolute Nucleated RBC Nucleated RBC % Sodium Potassium Chloride Carbon Dioxide Anion Gap BUN Creatinine Estimated GFR (MDRD) Glucose POC Whole Bld Glucose 424 H Calcium Total Bilirubin AST ALT Alkaline Phosphatase Total Protein Albumin Globulin Albumin/Globulin Ratio Lipase TSH 4.05 Urine Color YELLOW Urine Clarity CLEAR Urine pH 5.5 Ur Specific [place] 1.025 Urine Protein NEGATIVE Urine Glucose (UA) >=1000 H Urine Ketones TRACE Urine Occult Blood NEGATIVE Urine Nitrite NEGATIVE Urine Bilirubin NEGATIVE Urine Urobilinogen 0.2 (NORMAL) Ur Leukocyte Esterase NEGATIVE Ur Microscopic Review NOT INDICATED Urine Culture Comments NOT INDICATED Last Dose Date Last Dose Time Salicylates Urine Opiates Screen NEGATIVE Ur Oxycodone Screen NEGATIVE Urine Methadone Screen NEGATIVE Ur Propoxyphene Screen NEGATIVE Acetaminophen Ur Barbiturates Screen NEGATIVE Carbamazepine Ur Tricyclics Screen NEGATIVE Ur Phencyclidine Scrn NEGATIVE Ur Amphetamine Screen POSITIVE H U Methamphetamines Scrn NEGATIVE U Benzodiazepines Scrn NEGATIVE Urine Cocaine Screen NEGATIVE U Cannabinoids Screen NEGATIVE Ethyl Alcohol 05/02/19 20:45 WBC RBC Hgb Hct MCV MCH MCHC RDW Plt Count MPV Neut # (Auto) Lymph # (Auto) [place] # (Auto) Eos # (Auto) Baso # (Auto) Absolute Nucleated RBC Nucleated RBC % Sodium Potassium Chloride Carbon Dioxide Anion Gap BUN Creatinine Estimated GFR (MDRD) Glucose POC Whole Bld Glucose 275 H Calcium Total Bilirubin AST ALT Alkaline Phosphatase Total Protein Albumin Globulin Albumin/Globulin Ratio Lipase TSH Urine Color Urine Clarity Urine pH Ur Specific [place] Urine Protein Urine Glucose (UA) Urine Ketones Urine Occult Blood Urine Nitrite Urine Bilirubin Urine Urobilinogen Ur Leukocyte Esterase Ur Microscopic Review Urine Culture Comments Last Dose Date Last Dose Time Salicylates Urine Opiates Screen Ur Oxycodone Screen Urine Methadone Screen Ur Propoxyphene Screen Acetaminophen Ur Barbiturates Screen Carbamazepine Ur Tricyclics Screen Ur Phencyclidine Scrn Ur Amphetamine Screen U Methamphetamines Scrn U Benzodiazepines Scrn Urine Cocaine Screen U Cannabinoids Screen Ethyl Alcohol PD MEDICAL DECISION MAKING - ED course Complexity details: re-evaluated patient ED course: 29-year-old gentleman with schizoaffective disorder and poorly controlled diabetes presents with suicidal ideation and command hallucinations. He is cooperative here though. His blood sugar was uncontrolled which was treated with divided doses of subcutaneous insulin with good effect. Claudio dixon is considering his case. If they decline I would recommend he board in the emergency department pending social work evaluation for continued attempts at placement in the morning. Departure - Departure Disposition: 01 Home, Self Care Clinical Impression: Uncontrolled diabetes mellitus, Psychosis Condition: Fair Instructions: ED Schizo Affective Disorder Follow-Up: Yesenia Dominguez MD [Primary Care Provider] - Comments: Be sure to keep the appointment with your therapist in 2 days. Return to the emergency department if you begin hearing the voices again and they are not controlled in your usual methods. Return if you are feeling like you are going to harm yourself. Discharge Date/Time: 05/03/19 00:09
[2019-05-02 17:15] LABS: ACETAMINOPHEN < 10 ug/mL (10-30); ALBUMIN 4.6 g/dL (3.2-5.5); ALBUMIN/GLOBULIN RATIO 1.4 (1.0-2.2); ALKALINE PHOSPHATASE 95 IU/L (42-121); ALT ALANINE AMINOTRANSFERASE 26 IU/L (10-60); AST ASPARTATE AMINOTRANSFERASE 24 IU/L (10-42); BILIRUBIN,TOTAL 0.5 mg/dL (0.2-1.0); BUN - BLOOD UREA NITROGEN 24 mg/dL (6-20); CARBON DIOXIDE - CO2 21 mmol/L (21-32); CHLORIDE 98 mmol/L (101-111); CREATININE 1.3 mg/dL (0.6-1.2); GFR - MDRD 66 (>89); GLUCOSE 435 mg/dL (70-100); LIPASE 111 U/L (22-51); SALICYLATE < 6.0 mg/dL; SODIUM 134 mmol/L (135-145); TOTAL PROTEIN 7.8 g/dL (6.7-8.2)
[2019-05-02 17:18] LABS: AMPHETAMINE SCREEN,URINE POSITIVE (NEGATIVE); BENZODIAZEPINES SCREEN, URINE NEGATIVE (NEGATIVE); CLARITY,URINE CLEAR (CLEAR); COCAINE SCREEN URINE NEGATIVE (NEGATIVE); METHADONE SCREEN, URINE NEGATIVE (NEGATIVE); METHAMPHETAMINES SCREEN, URINE NEGATIVE (NEGATIVE); OPIATE SCREEN, URINE NEGATIVE (NEGATIVE); OXYCODONE SCREEN, URINE NEGATIVE (NEGATIVE); PROPOXYPHENE SCREEN, URINE NEGATIVE (NEGATIVE); TRICYCLIC ANTIDEPRESSANT,URINE NEGATIVE (NEGATIVE)
[2019-05-02] MEDS ORDERED: INSULIN REGULAR HUMAN 100 UNIT/1 ML 10 ML MDV SUBQ STA ×2 (17:22→19:08)
[2019-05-02 17:31] LABS: CARBAMAZEPINE (TEGRETOL) 7.1 ug/mL
[2019-05-03 00:04] VITALS: BP 133/80
--- NOTE | 2019-05-03 00:05 | ED Physician Documentation ---
PD HPI MHE - Stated complaint Stated Complaint: SI - Chief complaint Chief Complaint: MHE PD PAST MEDICAL HISTORY - Past Medical History Past Medical History: No Cardiovascular: None Respiratory: Asthma Neuro: Seizure disorder Endocrine/Autoimmune: Type 2 diabetes GI: GERD, Other : None HEENT: None Psych: Depression, ADD/ADHD, Post traumatic stress disorder Musculoskeletal: None Derm: None - Past Surgical History Past Surgical History: Yes HEENT: Other - Present Medications Home Medications: Ambulatory Orders Medication Instructions Recorded Confirmed traZODone [Desyrel] 1 tab PO DAILY 10/31/15 03/31/19 cloNIDine [Catapres] 1 tab PO BID 04/17/16 03/31/19 Acetaminophen [Tylenol Extra 500 mg PO PRN PRN 04/28/17 03/31/19 Strength] Albuterol Sulf [Ventolin Hfa 1 - 2 puffs INH PRN PRN 04/28/17 03/31/19 Inhaler] Ascorbic Acid [Vitamin C with Ashlee 1,000 mg PO DAILY 04/28/17 03/31/19 Hips] Cholecalciferol (Vitamin D3) 2,000 unit PO DAILY 04/28/17 03/31/19 [Vitamin D] Carbamazepine 200 mg PO DAILY 02/23/19 03/31/19 Fluoxetine HCl 20 mg PO DAILY 02/23/19 03/31/19 Lisdexamfetamine Dimesylate 70 mg PO DAILY 02/23/19 03/31/19 [Vyvanse] Metformin HCl [Fortamet] 1 tab PO BID 03/31/19 03/31/19 Ziprasidone HCl 1 tab PO BID 03/31/19 03/31/19 - Allergies Allergies/Adverse Reactions: Allergies Allergy/AdvReac Type Severity Reaction Status Date / Time No Known Drug Allergies Allergy Verified 05/02/19 16:44 - Social History Does the pt smoke?: No Smoking Status: Never smoker Does the pt drink ETOH?: No Does the pt have substance abuse?: No - Immunizations Immunizations are current?: Yes - POLST Patient has POLST: No Results - Vitals Vitals: Vital Signs - 24 hr 05/02/19 05/02/19 05/02/19 16:40 19:19 21:14 Temperature 36.6 C 36.4 C L 36.5 C Heart Rate 115 H 89 90 Respiratory 18 16 18 Rate Blood Pressure 145/92 H 128/93 H 142/78 H O2 Saturation 96 99 98 Oxygen O2 Source Room air - Labs Labs: Laboratory Tests 05/02/19 05/02/19 05/02/19 14:15 16:50 16:50 WBC 13.1 H RBC 5.87 Hgb 17.3 Hct 49.9 MCV 85.1 MCH 29.4 MCHC 34.6 RDW 13.2 Plt Count 241 MPV 6.7 L Neut # (Auto) 9.4 H Lymph # (Auto) 2.8 [place] # (Auto) 0.7 Eos # (Auto) 0.2 Baso # (Auto) 0.1 Absolute Nucleated RBC 0.05 Nucleated RBC % 0.4 Sodium 134 L Potassium 4.5 Chloride 98 L Carbon Dioxide 21 Anion Gap 15.0 H BUN 24 H Creatinine 1.3 H Estimated GFR (MDRD) 66 L Glucose 435 H POC Whole Bld Glucose Calcium 10.0 Total Bilirubin 0.5 AST 24 ALT 26 Alkaline Phosphatase 95 Total Protein 7.8 Albumin 4.6 Globulin 3.2 Albumin/Globulin Ratio 1.4 Lipase 111 H TSH Urine Color Urine Clarity Urine pH Ur Specific [place] Urine Protein Urine Glucose (UA) Urine Ketones Urine Occult Blood Urine Nitrite Urine Bilirubin Urine Urobilinogen Ur Leukocyte Esterase Ur Microscopic Review Urine Culture Comments Last Dose Date UNKNOWN Last Dose Time UNKNOWN Salicylates < 6.0 Urine Opiates Screen Ur Oxycodone Screen Urine Methadone Screen Ur Propoxyphene Screen Acetaminophen < 10 L Ur Barbiturates Screen Carbamazepine 7.1 Ur Tricyclics Screen Ur Phencyclidine Scrn Ur Amphetamine Screen U Methamphetamines Scrn U Benzodiazepines Scrn Urine Cocaine Screen U Cannabinoids Screen Ethyl Alcohol < 5.0 05/02/19 05/02/19 05/02/19 16:50 17:00 18:52 WBC RBC Hgb Hct MCV MCH MCHC RDW Plt Count MPV Neut # (Auto) Lymph # (Auto) [place] # (Auto) Eos # (Auto) Baso # (Auto) Absolute Nucleated RBC Nucleated RBC % Sodium Potassium Chloride Carbon Dioxide Anion Gap BUN Creatinine Estimated GFR (MDRD) Glucose POC Whole Bld Glucose 424 H Calcium Total Bilirubin AST ALT Alkaline Phosphatase Total Protein Albumin Globulin Albumin/Globulin Ratio Lipase TSH 4.05 Urine Color YELLOW Urine Clarity CLEAR Urine pH 5.5 Ur Specific [place] 1.025 Urine Protein NEGATIVE Urine Glucose (UA) >=1000 H Urine Ketones TRACE Urine Occult Blood NEGATIVE Urine Nitrite NEGATIVE Urine Bilirubin NEGATIVE Urine Urobilinogen 0.2 (NORMAL) Ur Leukocyte Esterase NEGATIVE Ur Microscopic Review NOT INDICATED Urine Culture Comments NOT INDICATED Last Dose Date Last Dose Time Salicylates Urine Opiates Screen NEGATIVE Ur Oxycodone Screen NEGATIVE Urine Methadone Screen NEGATIVE Ur Propoxyphene Screen NEGATIVE Acetaminophen Ur Barbiturates Screen NEGATIVE Carbamazepine Ur Tricyclics Screen NEGATIVE Ur Phencyclidine Scrn NEGATIVE Ur Amphetamine Screen POSITIVE H U Methamphetamines Scrn NEGATIVE U Benzodiazepines Scrn NEGATIVE Urine Cocaine Screen NEGATIVE U Cannabinoids Screen NEGATIVE Ethyl Alcohol 05/02/19 20:45 WBC RBC Hgb Hct MCV MCH MCHC RDW Plt Count MPV Neut # (Auto) Lymph # (Auto) [place] # (Auto) Eos # (Auto) Baso # (Auto) Absolute Nucleated RBC Nucleated RBC % Sodium Potassium Chloride Carbon Dioxide Anion Gap BUN Creatinine Estimated GFR (MDRD) Glucose POC Whole Bld Glucose 275 H Calcium Total Bilirubin AST ALT Alkaline Phosphatase Total Protein Albumin Globulin Albumin/Globulin Ratio Lipase TSH Urine Color Urine Clarity Urine pH Ur Specific [place] Urine Protein Urine Glucose (UA) Urine Ketones Urine Occult Blood Urine Nitrite Urine Bilirubin Urine Urobilinogen Ur Leukocyte Esterase Ur Microscopic Review Urine Culture Comments Last Dose Date Last Dose Time Salicylates Urine Opiates Screen Ur Oxycodone Screen Urine Methadone Screen Ur Propoxyphene Screen Acetaminophen Ur Barbiturates Screen Carbamazepine Ur Tricyclics Screen Ur Phencyclidine Scrn Ur Amphetamine Screen U Methamphetamines Scrn U Benzodiazepines Scrn Urine Cocaine Screen U Cannabinoids Screen Ethyl Alcohol PD MEDICAL DECISION MAKING - ED course ED course: [facility] has declined the patient for admission because of his seizures. Patient has been admitted there in the past the most recent time being about a month ago. He says he is no longer hearing the voices he has an appointment with a therapist in 2 days. He thinks this was an exacerbation today because he was denied SSI benefits. He is not currently working. He does not feel suicidal and wishes to be discharged home. His father is here with him. The patient lives with the father and he feels comfortable taking him home as well. He is made no attempt to harm himself prior to his arrival here today. He is good to be discharged with outpatient follow-up with the therapist in 2 days. He has contracted to go to his father for help if he is hearing voices again or feels suicidal. Departure - Departure Disposition: 01 Home, Self Care Clinical Impression: Uncontrolled diabetes mellitus Qualifiers: Diabetes mellitus type: type 2 Glycemic state: with hyperglycemia Qualified Code(s): E11.65 - Type 2 diabetes mellitus with hyperglycemia Psychosis Qualifiers: Psychosis type: schizoaffective disorder Schizoaffective disorder type: depressive Qualified Code(s): F25.1 - Schizoaffective disorder, depressive type Condition: Fair Instructions: ED Schizo Affective Disorder Follow-Up: Yesenia Dominguez MD [Primary Care Provider] - Comments: Be sure to keep the appointment with your therapist in 2 days. Return to the emergency department if you begin hearing the voices again and they are not controlled in your usual methods. Return if you are feeling like you are going to harm yourself.
== END 2019-05-03 00:09 | disposition home or self-care (01) ==
LOC: ED 16:35
DX: F25.1 Schizoaffective disorder, depressive type (principal); R45.851 Suicidal ideations; E11.65 Type 2 diabetes mellitus with hyperglycemia; Z79.84 Long term (current) use of oral hypoglycemic drugs; G40.909 Epilepsy, unspecified, not intractable, without status epilepticus; F43.10 Post-traumatic stress disorder, unspecified
CPT/HCPCS: 36415; 80053; 80156; 80306; 80307; 80320; 80329; 81003; 83690; 84443; 85025; 99284; J1815; 81001; 87086

== ENCOUNTER 2019-05-19 10:32 | Emergency (ER) | payer MEDICAID ==
--- NOTE | 2019-05-19 11:15 | ED Physician Documentation ---
History of Present Illness - Stated complaint Stated Complaint: MHE - Chief complaint Chief Complaint: General - History obtained from History obtained from: Patient, Family - Additonal information Additional information: Patient is a 29-year-old male with history of schizoaffective disorder, depression, PTSD presenting to the ED with his father with request for admission to [facility] for worsening of his chronic hallucinations and other emotional distress. Patient denies any self harming behavior and also denies any homicidal or suicidal thoughts today. Patient sees his therapist regularly who recommended evaluation and placement. Patient does believe that there is a bed available at [facility]. Patient's initiating trigger was eating oatmeal several days ago. Patient otherwise reports that he is compliant with medications and denies alcohol or recreational drug use. No other improving or worsening factors noted. Patient denies other medical complaints. Review of Systems Constitutional: denies: Fever Respiratory: denies: Cough GI: denies: Abdominal Pain, Vomiting, Diarrhea : denies: Dysuria Psychiatric: reports: Depressed, Hallucinations. denies: Suicidal, Homicidal PD PAST MEDICAL HISTORY - Past Medical History Cardiovascular: None Respiratory: Asthma Neuro: Seizure disorder Endocrine/Autoimmune: Type 2 diabetes GI: GERD, Other : None HEENT: None Psych: Depression, ADD/ADHD, Post traumatic stress disorder Musculoskeletal: None Derm: None Other Past Medical History: schizoeffective disorder - Past Surgical History Past Surgical History: Yes HEENT: Other - Present Medications Home Medications: Ambulatory Orders Medication Instructions Recorded Confirmed traZODone [Desyrel] 2 tab PO DAILY PM PRN 10/31/15 05/19/19 Acetaminophen [Tylenol Extra 500 mg PO PRN PRN 04/28/17 05/19/19 Strength] Albuterol Sulf [Ventolin Hfa 1 - 2 puffs INH PRN PRN 04/28/17 05/19/19 Inhaler] Ascorbic Acid [Vitamin C with Ashlee 1,000 mg PO DAILY 04/28/17 05/19/19 Hips] Cholecalciferol (Vitamin D3) 2,000 unit PO DAILY 04/28/17 05/19/19 [Vitamin D] Carbamazepine 200 mg PO BID 02/23/19 05/19/19 Fluoxetine HCl 20 mg PO DAILY 02/23/19 05/19/19 Lisdexamfetamine Dimesylate 70 mg PO DAILY 02/23/19 05/19/19 [Vyvanse] Metformin HCl [Fortamet] 1 tab PO BID 03/31/19 05/19/19 Ziprasidone HCl 80 mg PO BID 03/31/19 05/19/19 Insulin Glargine [Lantus Solostar] 30 unit SQ DAILY 05/19/19 05/19/19 Insulin Lispro [Humalog Kwikpen 5 - 10 unit SUBQ TID 05/19/19 05/19/19 U-100] Mirtazapine 15 mg PO DAILY PM PRN 05/19/19 05/19/19 Prazosin HCl 1 mg PO DAILY PM 05/19/19 05/19/19 Ranitidine HCl [Acid Control] 150 mg PO BID 05/19/19 05/19/19 - Allergies Allergies/Adverse Reactions: Allergies Allergy/AdvReac Type Severity Reaction Status Date / Time No Known Drug Allergies Allergy Verified 05/19/19 10:37 - Social History Does the pt smoke?: Yes Smoking Status: Current some day smoker Does the pt drink ETOH?: No Does the pt have substance abuse?: No - Immunizations Immunizations are current?: Yes - POLST Patient has POLST: No PD ED PE NORMAL - Vitals Vital signs reviewed: Yes - General General: Alert and oriented X 3, No acute distress, Well developed/nourished - HEENT HEENT: Atraumatic, Moist mucous membranes - Neck Neck: Supple, no meningeal sign - Cardiac Cardiac: RRR, No murmur - Respiratory Respiratory: No respiratory distress, Clear bilaterally - Abdomen Abdomen: Soft, Non tender, Non distended - Derm Derm: Normal color, Warm and dry, No rash - Extremities Extremities: No deformity, No tenderness to palpate - Neuro Neuro: Alert and oriented X 3, No motor deficit, No sensory deficit - Psych Psych: Normal mood, Normal affect, Other (Making jokes, laughing and pleasant) Results - Vitals Vitals: Vital Signs - 24 hr 05/19/19 05/19/19 05/19/19 10:33 10:45 12:31 Temperature 36.5 C 36.7 C 36.9 C Heart Rate 105 H 103 H 102 H Respiratory 14 18 16 Rate Blood Pressure 148/81 H 148/91 H 142/78 H O2 Saturation 98 96 98 05/19/19 14:30 Temperature 36.9 C Heart Rate 117 H Respiratory 16 Rate Blood Pressure 149/84 H O2 Saturation 96 Oxygen O2 Source Room air - Labs Labs: Laboratory Tests 05/19/19 05/19/19 05/19/19 11:34 11:34 11:34 WBC 8.6 RBC 5.39 Hgb 16.2 Hct 45.4 MCV 84.2 MCH 30.1 MCHC 35.7 RDW 12.9 Plt Count 174 MPV 8.8 Neut # (Auto) 6.0 Lymph # (Auto) 2.0 [place] # (Auto) 0.4 Eos # (Auto) 0.2 Baso # (Auto) 0.0 Absolute Nucleated RBC 0.00 Nucleated RBC % 0.0 Sodium 134 L Potassium 4.5 Chloride 100 L Carbon Dioxide 19 L Anion Gap 15.0 H BUN 20 Creatinine 1.3 H Estimated GFR (MDRD) 66 L Glucose 465 H Calcium 9.5 Total Bilirubin 0.6 AST 30 ALT < 10 L Alkaline Phosphatase 82 Total Protein 7.1 Albumin 3.9 Globulin 3.2 Albumin/Globulin Ratio 1.2 Lipase 37 TSH 3.80 Urine Color Urine Clarity Urine pH Ur Specific [place] Urine Protein Urine Glucose (UA) Urine Ketones Urine Occult Blood Urine Nitrite Urine Bilirubin Urine Urobilinogen Ur Leukocyte Esterase Ur Microscopic Review Urine Culture Comments Salicylates < 6.0 Urine Opiates Screen Ur Oxycodone Screen Urine Methadone Screen Ur Propoxyphene Screen Acetaminophen < 10 L Ur Barbiturates Screen Ur Tricyclics Screen Ur Phencyclidine Scrn Ur Amphetamine Screen U Methamphetamines Scrn U Benzodiazepines Scrn Urine Cocaine Screen U Cannabinoids Screen Ethyl Alcohol < 5.0 05/19/19 11:50 WBC RBC Hgb Hct MCV MCH MCHC RDW Plt Count MPV Neut # (Auto) Lymph # (Auto) [place] # (Auto) Eos # (Auto) Baso # (Auto) Absolute Nucleated RBC Nucleated RBC % Sodium Potassium Chloride Carbon Dioxide Anion Gap BUN Creatinine Estimated GFR (MDRD) Glucose Calcium Total Bilirubin AST ALT Alkaline Phosphatase Total Protein Albumin Globulin Albumin/Globulin Ratio Lipase TSH Urine Color YELLOW Urine Clarity CLEAR Urine pH 5.5 Ur Specific [place] <=1.005 Urine Protein NEGATIVE Urine Glucose (UA) >=1000 H Urine Ketones NEGATIVE Urine Occult Blood NEGATIVE Urine Nitrite NEGATIVE Urine Bilirubin NEGATIVE Urine Urobilinogen 0.2 (NORMAL) Ur Leukocyte Esterase NEGATIVE Ur Microscopic Review NOT INDICATED Urine Culture Comments NOT INDICATED Salicylates Urine Opiates Screen NEGATIVE Ur Oxycodone Screen NEGATIVE Urine Methadone Screen NEGATIVE Ur Propoxyphene Screen NEGATIVE Acetaminophen Ur Barbiturates Screen NEGATIVE Ur Tricyclics Screen NEGATIVE Ur Phencyclidine Scrn NEGATIVE Ur Amphetamine Screen POSITIVE H U Methamphetamines Scrn NEGATIVE U Benzodiazepines Scrn NEGATIVE Urine Cocaine Screen NEGATIVE U Cannabinoids Screen NEGATIVE Ethyl Alcohol PD MEDICAL DECISION MAKING - ED course Complexity details: reviewed results, considered differential, d/w patient, d/w family ED course: Patient with history of psychiatric illness presenting with acute on chronic hallucinations and exacerbation of his PTSD. Patient denies any self harming behavior do not find evidence of trauma on exam. Patient also denies suicidal or homicidal ideations. Patient reports he is compliant with all medications. He denies recreational drugs or alcohol. Screening lab work and urinalysis, as well as drug screening obtained. Patient did have a positive drug screen for amphetamines, likely due to his home medications as opposed to illicit drug use. Social work consulted and arranging for placement. Departure - Departure Clinical Impression: Hallucinations Condition: Fair
[2019-05-19 11:48] LABS: BASOPHILS % (AUTO) 0.5 %; EOSINOPHILS # (AUTO) 0.2 10^3/uL (0.0-0.7); HGB - HEMOGLOBIN 16.2 g/dL (14.0-18.0); LYMPHOCYTES % (AUTO) 22.8 %; MEAN CORPUSCULAR HEMOGLOBIN 30.1 pg (27.0-31.0); MEAN CORPUSCULAR HGB CONC 35.7 g/dL (32.0-36.0); MEAN CORPUSCULAR VOLUME 84.2 fL (80.0-94.0); MEAN PLATELET VOLUME 8.8 fL (7.4-11.4); MONOCYTES # (AUTO) 0.4 10^3/uL (0.0-1.0); MONOCYTES % (AUTO) 5.1 %; PLT - PLATELET COUNT 174 10^3/uL (130-450); RED BLOOD COUNT 5.39 10^6/uL (4.70-6.10); RED CELL DISTRIBUTION WIDTH 12.9 % (12.0-15.0); WHITE BLOOD COUNT 8.6 x10^3/uL (4.8-10.8)
[2019-05-19 12:03] LABS: ACETAMINOPHEN < 10 ug/mL (10-30); ALBUMIN 3.9 g/dL (3.2-5.5); ALBUMIN/GLOBULIN RATIO 1.2 (1.0-2.2); ALKALINE PHOSPHATASE 82 IU/L (42-121); AST ASPARTATE AMINOTRANSFERASE 30 IU/L (10-42); BILIRUBIN,TOTAL 0.6 mg/dL (0.2-1.0); BUN - BLOOD UREA NITROGEN 20 mg/dL (6-20); CALCIUM 9.5 mg/dL (8.5-10.3); CARBON DIOXIDE - CO2 19 mmol/L (21-32); CHLORIDE 100 mmol/L (101-111); CREATININE 1.3 mg/dL (0.6-1.2); GFR - MDRD 66 (>89); GLUCOSE 465 mg/dL (70-100); LIPASE 37 U/L (22-51); SALICYLATE < 6.0 mg/dL; SODIUM 134 mmol/L (135-145); TOTAL PROTEIN 7.1 g/dL (6.7-8.2)
[2019-05-19 12:07] LABS: MUDS CUTOFF CONCENTRATIONS CUTOFF CONC BELOW:
[2019-05-19 12:15] LABS: BILIRUBIN,URINE NEGATIVE (NEGATIVE); GLUCOSE, URINE (UA) >=1000 mg/dL (NEGATIVE); KETONES,URINE (UA) NEGATIVE (NEGATIVE); LEUKOCYTE ESTERASE, URINE NEGATIVE (NEGATIVE); NITRITE,URINE NEGATIVE (NEGATIVE); OCCULT BLOOD,URINE NEGATIVE (NEGATIVE); PH,URINE 5.5 PH (5.0-7.5); PROTEIN,URINE NEGATIVE (NEGATIVE); UROBILINOGEN,URINE 0.2 (NORMAL) E.U./dL (NORMAL)
[2019-05-19 12:18] LABS: CLARITY,URINE CLEAR (CLEAR)
[2019-05-19 12:24] LABS: AMPHETAMINE SCREEN,URINE POSITIVE (NEGATIVE); BENZODIAZEPINES SCREEN, URINE NEGATIVE (NEGATIVE); COCAINE SCREEN URINE NEGATIVE (NEGATIVE); METHADONE SCREEN, URINE NEGATIVE (NEGATIVE); METHAMPHETAMINES SCREEN, URINE NEGATIVE (NEGATIVE); OPIATE SCREEN, URINE NEGATIVE (NEGATIVE); OXYCODONE SCREEN, URINE NEGATIVE (NEGATIVE); PROPOXYPHENE SCREEN, URINE NEGATIVE (NEGATIVE); TRICYCLIC ANTIDEPRESSANT,URINE NEGATIVE (NEGATIVE)
[2019-05-19 12:33] LABS: ALT ALANINE AMINOTRANSFERASE < 10 IU/L (10-60)
[2019-05-19 19:12] VITALS: BP 143/93
== END 2019-05-19 19:14 ==
LOC: ED 10:32
DX: Z00.8 Encounter for other general examination (principal); F25.9 Schizoaffective disorder, unspecified; F43.10 Post-traumatic stress disorder, unspecified; F17.200 Nicotine dependence, unspecified, uncomplicated; E11.9 Type 2 diabetes mellitus without complications; Z79.899 Other long term (current) drug therapy; Z79.84 Long term (current) use of oral hypoglycemic drugs
CPT/HCPCS: 36415; 80053; 80306; 80307; 80320; 80329; 81001; 81003; 83690; 84443; 85025; 87086; 99283; 99284

== ENCOUNTER 2019-07-04 15:05 | Outpatient (CLI) | payer MEDICAID | END 2019-07-04 23:59 | disposition home or self-care (01) | LOC: LAB.R 15:05 | PROVIDERS: ATTEND Family Medicine | DX: R19.7 Diarrhea, unspecified (principal) | CPT/HCPCS: 83630; 87177; 87209 ==

== ENCOUNTER 2019-07-05 08:00 | Outpatient (CLI) | payer MEDICAID | END 2019-07-05 23:59 | disposition home or self-care (01) | LOC: LAB.WCP 08:00 | PROVIDERS: ATTEND Family Medicine | DX: R19.7 Diarrhea, unspecified (principal) | CPT/HCPCS: 81599; 83630; 87045; 87046; 87177; 87209; 87329 ==

== ENCOUNTER 2021-02-18 07:00 | Outpatient (CLI) | payer MEDICARE ==
--- NOTE | 2021-02-18 15:13 | XRAY Report ---
PROCEDURE: Ankle 3 View RT INDICATIONS: RIGHT ANKLE PAIN TECHNIQUE: 3 views of the ankle were acquired. COMPARISON: No trauma FINDINGS: Bones: No fractures or dislocations. Ankle mortise is normally aligned. No suspicious bony lesions . Soft tissues: No tibiotalar joint effusion. Achilles tendon appears normal. IMPRESSION: Normal right ankle. Reviewed by: Olvin Brock MD on 02/18/2021 3:12 PM PDT Approved by: Olvin Brock MD on 02/18/2021 3:12 PM PDT Station ID: [id number]
== END 2021-02-18 23:59 | disposition home or self-care (01) ==
LOC: DI.N 07:00
PROVIDERS: ATTEND Family Medicine
DX: M25.571 Pain in right ankle and joints of right foot (principal)

== ENCOUNTER 2021-05-24 15:14 | Outpatient (CLI) | payer MEDICARE | END 2021-05-24 15:15 | disposition EMS.NT | LOC: EMS 15:14 | DX: R56.9 Unspecified convulsions (principal); R53.1 Weakness; R20.0 Anesthesia of skin ==

== ENCOUNTER 2022-07-25 07:39 | Outpatient (CLI) | payer MEDICARE ==
[2022-07-25 07:59] LABS: BASOPHILS % (AUTO) 0.4 %; EOSINOPHILS # (AUTO) 0.2 10^3/uL (0.0-0.7); EOSINOPHILS % (AUTO) 2.1 %; HGB - HEMOGLOBIN 15.5 g/dL (14.0-18.0); LYMPHOCYTES # (AUTO) 3.3 10^3/uL (1.5-3.5); LYMPHOCYTES % (AUTO) 42.2 %; MEAN CORPUSCULAR HEMOGLOBIN 30.1 pg (27.0-31.0); MEAN CORPUSCULAR VOLUME 83.5 fL (80.0-94.0); MEAN PLATELET VOLUME 8.7 fL (7.4-11.4); MONOCYTES # (AUTO) 0.4 10^3/uL (0.0-1.0); MONOCYTES % (AUTO) 4.8 %; NEUTROPHILS # (AUTO) 3.9 10^3/uL (1.5-6.6); PLT - PLATELET COUNT 233 10^3/uL (130-450); RED BLOOD COUNT 5.15 10^6/uL (4.70-6.10); RED CELL DISTRIBUTION WIDTH 12.2 % (12.0-15.0); WHITE BLOOD COUNT 7.7 x10^3/uL (4.8-10.8)
[2022-07-25 08:19] LABS: ALBUMIN 4.1 g/dL (3.2-5.5); ALBUMIN/GLOBULIN RATIO 1.3 (1.0-2.2); ALKALINE PHOSPHATASE 59 IU/L (42-121); ALT ALANINE AMINOTRANSFERASE 25 IU/L (10-60); AST ASPARTATE AMINOTRANSFERASE 20 IU/L (10-42); BILIRUBIN,TOTAL 0.2 mg/dL (0.2-1.0); BUN - BLOOD UREA NITROGEN 23 mg/dL (6-20); CALCIUM 9.2 mg/dL (8.5-10.3); CARBAMAZEPINE (TEGRETOL) 8.1 ug/mL; CARBON DIOXIDE - CO2 23 mmol/L (21-32); CHLORIDE 103 mmol/L (101-111); CHOL/HDL RATIO 7.2 (<5.0); CHOLESTEROL 187 mg/dL; CREATININE 0.9 mg/dL (0.6-1.2); GFR - MDRD 98 (>89); GLUCOSE 222 mg/dL (70-100); HDL CHOLESTEROL 26 mg/dL; LDL CHOLESTEROL,CALCULATED 95 mg/dL; LDL/HDL RATIO 3.7 (<3.6); POTASSIUM 4.1 mmol/L (3.5-5.0); SODIUM 137 mmol/L (135-145); TOTAL PROTEIN 7.3 g/dL (6.7-8.2); TRIGLYCERIDES 331 mg/dL; VLDL CHOLESTEROL 66 mg/dL
[2022-07-25 08:30] LABS: THYROID STIMULATING HORMONE 4.37 uIU/mL (0.34-5.60)
[2022-07-25 10:10] LABS: ESTIMATED AVERAGE GLUCOSE 183 mg/dL (70-100)
[2022-07-25 17:11] LABS: CREATININE,URINE 28.6 mg/dL; MICROALBUM/CREATININE RATIO,UR 10.5 ug/mg (<30.0); MICROALBUMIN,URINE 0.3 mg/dL (0-300.0)
== END 2022-07-25 07:40 | disposition home or self-care (01) ==
LOC: LAB 07:39
PROVIDERS: ATTEND Internal Medicine
DX: E11.9 Type 2 diabetes mellitus without complications (principal); F44.5 Conversion disorder with seizures or convulsions; F32.A Depression, unspecified
CPT/HCPCS: 36415; 80053; 80061; 80156; 82043; 82570; 83036; 83721; 84443; 85025

== ENCOUNTER 2022-09-04 13:10 | Outpatient (CLI) | payer MEDICARE | END 2022-09-04 13:11 | disposition left against medical advice (07) | LOC: EMS 13:10 | DX: R51.9 Headache, unspecified (principal); R42 Dizziness and giddiness; R11.0 Nausea; W18.30XA Fall on same level, unspecified, initial encounter; Y92.031 Bathroom in apartment as the place of occurrence of the external cause ==

== ENCOUNTER 2022-09-04 13:44 | Emergency (ER) | payer MEDICARE ==
[2022-09-04 14:08] VITALS: BP 144/84
== END 2022-09-04 14:10 | disposition home or self-care (01) ==
LOC: ED 13:44
DX: Z53.29 Procedure and treatment not carried out because of patient's decision for other reasons (principal)

== ENCOUNTER 2023-01-05 10:15 | Outpatient (CLI) | payer MEDICARE | END 2023-01-05 10:16 | disposition critical access hospital (66) | LOC: EMS 10:15 | DX: R46.4 Slowness and poor responsiveness (principal); R42 Dizziness and giddiness; T50.901A Poisoning by unspecified drugs, medicaments and biological substances, accidental (unintentional), initial encounter | CPT/HCPCS: A0425; A0429 ==

== ENCOUNTER 2023-01-05 10:31 | Emergency (ER) | payer MEDICARE ==
[2023-01-05 10:46] VITALS: BP 133/77
--- NOTE | 2023-01-05 10:55 | ED Physician Documentation ---
History of Present Illness - Stated complaint Stated Complaint: UNINTENTIONAL OD - Chief complaint Chief Complaint: General - History obtained from History obtained from: Patient - History of Present Illness Pain level max: 0 Pain level now: 0 - Additonal information Additional information: Patient is a 32-year-old male who presents to the emergency department after accidentally taking double dose of his nighttime medications last night. He states he feels mildly dizzy today. He took an extra dose of ziprasidone 80 mg. Take an extra dose of metformin, 1000 mg. Took an extra dose of carbamazepine, 200 mg. Take an extra dose of Ativan 1 mg. Review of Systems Constitutional: denies: Fever GI: denies: Vomiting, Diarrhea Skin: denies: Rash Musculoskeletal: denies: Neck pain, Back pain Neurologic: denies: Headache PD PAST MEDICAL HISTORY - Past Medical History Cardiovascular: None Respiratory: Asthma Neuro: Seizure disorder Endocrine/Autoimmune: Type 2 diabetes GI: GERD, Other : None HEENT: None Psych: Depression, ADD/ADHD, Post traumatic stress disorder Musculoskeletal: None Derm: None - Past Surgical History Past Surgical History: Yes HEENT: Other - Present Medications Home Medications: Ambulatory Orders Medication Instructions Recorded Confirmed traZODone [Desyrel] 2 tab PO DAILY PM PRN 10/31/15 01/05/23 Acetaminophen [Tylenol Extra 500 mg PO PRN PRN 04/28/17 01/05/23 Strength] Albuterol Sulf [Ventolin Hfa 1 - 2 puffs INH PRN PRN 04/28/17 01/05/23 Inhaler] Ascorbic Acid [Vitamin C with Ashlee 1,000 mg PO DAILY 04/28/17 01/05/23 Hips] Cholecalciferol (Vitamin D3) 2,000 unit PO DAILY 04/28/17 01/05/23 [Vitamin D] Carbamazepine 200 mg PO BID 02/23/19 01/05/23 Fluoxetine HCl 20 mg PO DAILY 02/23/19 01/05/23 Lisdexamfetamine Dimesylate 70 mg PO DAILY 02/23/19 01/05/23 [Vyvanse] Metformin HCl [Fortamet] 1 tab PO BID 03/31/19 01/05/23 ziprasidone HCL [Ziprasidone HCl] 80 mg PO BID 03/31/19 01/05/23 Insulin Glargine [Lantus Solostar] 30 unit SQ DAILY 05/19/19 01/05/23 Insulin Lispro [Humalog Kwikpen 5 - 10 unit SUBQ TID 05/19/19 01/05/23 U-100] Mirtazapine 15 mg PO DAILY PM PRN 05/19/19 01/05/23 Prazosin HCl 1 mg PO DAILY PM 05/19/19 01/05/23 raNITIdine HCl [Acid Control] 150 mg PO BID 05/19/19 01/05/23 - Allergies Allergies/Adverse Reactions: Allergies Allergy/AdvReac Type Severity Reaction Status Date / Time No Known Drug Allergies Allergy Verified 01/05/23 10:46 - Social History Does the pt smoke?: Yes Smoking Status: Unknown if ever smoked Does the pt drink ETOH?: No Does the pt have substance abuse?: No - Immunizations Immunizations are current?: Yes - POLST Patient has POLST: No PD ED PE NORMAL - Vitals Vital signs reviewed: Yes - General General: Alert and oriented X 3, No acute distress, Well developed/nourished - HEENT HEENT: Atraumatic, PERRL, EOMI, Ears normal, Moist mucous membranes, Pharynx benign - Neck Neck: Supple, no meningeal sign, No bony TTP - Cardiac Cardiac: RRR, No murmur, Strong equal pulses - Respiratory Respiratory: No respiratory distress, Clear bilaterally - Abdomen Abdomen: Soft, Non tender, Non distended - Derm Derm: Warm and dry - Extremities Extremities: No edema - Neuro Neuro: Alert and oriented X 3 - Psych Psych: Normal mood, Normal affect Results - Vitals Vitals: Vital Signs - 24 hr 01/05/23 01/05/23 10:42 10:58 Temperature 36.8 C Heart Rate 77 80 Respiratory 20 20 Rate Blood Pressure 133/77 H 133/77 H O2 Saturation 98 98 Oxygen O2 Source Room air - EKG (time done) 1054 Rate: Rate (enter#) (75) Rhythm: NSR [place]: Normal Intervals: Normal [place] QRS: Normal Ischemia: Normal ST segments PD Medical Decision Making - ED course Complexity details: reviewed results, re-evaluated patient, considered differential, d/w patient ED course: Patient accidentally took a double dose of his usual medications last night. None of these would reach a toxic threshold. The ingestion was over 12 hours ago. Currently asymptomatic. EKG does not show any significant QT prolongation. We will have him continue his current medications and follow-up with his doctor. Patient is not suicidal or homicidal. Patient counseled regarding signs and symptoms for which I believe and urgent re-evaluation would be necessary. Patient with good understanding of and agreement to plan and is comfortable going home at this time This document was made in part using voice recognition software. While efforts a re made to proofread this document, sound alike and grammatical errors may occur. Departure - Departure Disposition: 01 Home, Self Care Clinical Impression: Accidental overdose Qualifiers: Encounter type: initial encounter Qualified Code(s): T50.901A - Poisoning by unspecified drugs, medicaments and biological substances, accidental (unintentional), initial encounter Condition: Good Instructions: ED Overdose Accidental Follow-Up: Your,doctor in 1 week [Other] Comments: Please follow-up with your doctor for further care. Please skip your next dose of carbamazepine, metformin, and ziprasidone. Please return if you worsen. Discharge Date/Time: 01/05/23 11:13
== END 2023-01-05 11:13 | disposition home or self-care (01) ==
LOC: EDSEX → EDUNIT# → ED 10:31
DX: T38.3X1A Poisoning by insulin and oral hypoglycemic [antidiabetic] drugs, accidental (unintentional), initial encounter (principal); T42.1X1A Poisoning by iminostilbenes, accidental (unintentional), initial encounter; T42.4X1A Poisoning by benzodiazepines, accidental (unintentional), initial encounter; R42 Dizziness and giddiness
CPT/HCPCS: 93005; 99283

== ENCOUNTER 2023-01-08 16:12 | Emergency (ER) | payer MEDICARE ==
[2023-01-08 16:19] VITALS: BP 141/81
[2023-01-08 16:47] LABS: BASOPHILS % (AUTO) 0.4 %; EOSINOPHILS # (AUTO) 0.2 10^3/uL (0.0-0.7); EOSINOPHILS % (AUTO) 2.5 %; HCT - HEMATOCRIT 45.1 % (42.0-52.0); HGB - HEMOGLOBIN 15.6 g/dL (14.0-18.0); LYMPHOCYTES # (AUTO) 2.2 10^3/uL (1.5-3.5); LYMPHOCYTES % (AUTO) 27.7 %; MEAN CORPUSCULAR HEMOGLOBIN 28.6 pg (27.0-31.0); MEAN CORPUSCULAR HGB CONC 34.6 g/dL (32.0-36.0); MEAN CORPUSCULAR VOLUME 82.8 fL (80.0-94.0); MEAN PLATELET VOLUME 8.8 fL (7.4-11.4); MONOCYTES # (AUTO) 0.4 10^3/uL (0.0-1.0); MONOCYTES % (AUTO) 5.4 %; NEUTROPHILS # (AUTO) 5.1 10^3/uL (1.5-6.6); NEUTROPHILS % (AUTO) 63.6 %; PLT - PLATELET COUNT 250 10^3/uL (130-450); RED BLOOD COUNT 5.45 10^6/uL (4.70-6.10); RED CELL DISTRIBUTION WIDTH 12.1 % (12.0-15.0)
[2023-01-08 16:51] LABS: PT - PROTHROMBIN TIME 10.7 secs (9.9-12.6)
[2023-01-08 16:57] LABS: ALBUMIN 4.3 g/dL (3.2-5.5); ALBUMIN/GLOBULIN RATIO 1.3 (1.0-2.2); BILIRUBIN,TOTAL 0.6 mg/dL (0.2-1.0); CALCIUM 9.7 mg/dL (8.5-10.3); POTASSIUM 4.1 mmol/L (3.5-5.0); TOTAL PROTEIN 7.7 g/dL (6.7-8.2)
--- NOTE | 2023-01-08 17:36 | ED Physician Documentation ---
PD HPI ABD PAIN - Stated complaint Stated Complaint: GI BLEED - Chief complaint Chief Complaint: Abd Pain - History obtained from History obtained from: Patient - Additional information Additional information: 32-year-old gentleman presents with dark stools, abdominal pain, this is all been going on for 2 years. He is also had intermittent rectal pain not related to defecating or intercourse noting that he is homosexual. He is worried about a GI bleed. He never had upper or lower endoscopies. Of note he has a ancillary complaints of phimosis and would like a circumcision. Review of Systems Constitutional: denies: Weight Loss Respiratory: denies: Dyspnea, Cough GI: reports: Abdominal Pain. denies: Nausea, Vomiting PD PAST MEDICAL HISTORY - Past Medical History Cardiovascular: None Respiratory: Asthma Neuro: Seizure disorder Endocrine/Autoimmune: Type 2 diabetes GI: GERD, Other : None HEENT: None Psych: Depression, ADD/ADHD, Post traumatic stress disorder Musculoskeletal: None Derm: None - Past Surgical History Past Surgical History: Yes HEENT: Other - Present Medications Home Medications: Ambulatory Orders Medication Instructions Recorded Confirmed traZODone [Desyrel] 2 tab PO DAILY PM PRN 10/31/15 01/05/23 Acetaminophen [Tylenol Extra 500 mg PO PRN PRN 04/28/17 01/05/23 Strength] Albuterol Sulf [Ventolin Hfa 1 - 2 puffs INH PRN PRN 04/28/17 01/05/23 Inhaler] Ascorbic Acid [Vitamin C with Ashlee 1,000 mg PO DAILY 04/28/17 01/05/23 Hips] Cholecalciferol (Vitamin D3) 2,000 unit PO DAILY 04/28/17 01/05/23 [Vitamin D] Carbamazepine 200 mg PO BID 02/23/19 01/05/23 Fluoxetine HCl 20 mg PO DAILY 02/23/19 01/05/23 Lisdexamfetamine Dimesylate 70 mg PO DAILY 02/23/19 01/05/23 [Vyvanse] Metformin HCl [Fortamet] 1 tab PO BID 03/31/19 01/05/23 ziprasidone HCL [Ziprasidone HCl] 80 mg PO BID 03/31/19 01/05/23 Insulin Glargine [Lantus Solostar] 30 unit SQ DAILY 05/19/19 01/05/23 Insulin Lispro [Humalog Kwikpen 5 - 10 unit SUBQ TID 05/19/19 01/05/23 U-100] Mirtazapine 15 mg PO DAILY PM PRN 05/19/19 01/05/23 Prazosin HCl 1 mg PO DAILY PM 05/19/19 01/05/23 raNITIdine HCl [Acid Control] 150 mg PO BID 05/19/19 01/05/23 - Allergies Allergies/Adverse Reactions: Allergies Allergy/AdvReac Type Severity Reaction Status Date / Time No Known Drug Allergies Allergy Verified 01/08/23 16:19 - Social History Does the pt smoke?: Yes Smoking Status: Unknown if ever smoked Does the pt drink ETOH?: No Does the pt have substance abuse?: No - Immunizations Immunizations are current?: Yes - POLST Patient has POLST: No PD ED PE NORMAL - Vitals Vital signs reviewed: Yes - General General: Alert and oriented X 3, No acute distress - Abdomen Abdomen: Normal bowel sounds, Soft, Non tender - Rectal Rectal: Other (External noninflamed hemorrhoid with light green stool ) - Derm Derm: Normal color, Warm and dry - Neuro Neuro: Alert and oriented X 3, Normal speech Results - Vitals Vitals: Vital Signs - 24 hr 01/08/23 16:15 Temperature 36.7 C Heart Rate 84 Respiratory 14 Rate Blood Pressure 141/81 H O2 Saturation 98 Oxygen O2 Source Room air - Labs Labs: Laboratory Tests 01/08/23 01/08/23 01/08/23 16:38 16:38 16:38 WBC 8.0 RBC 5.45 Hgb 15.6 Hct 45.1 MCV 82.8 MCH 28.6 MCHC 34.6 RDW 12.1 Plt Count 250 MPV 8.8 Neut # (Auto) 5.1 Lymph # (Auto) 2.2 [place] # (Auto) 0.4 Eos # (Auto) 0.2 Baso # (Auto) 0.0 Absolute Nucleated RBC 0.00 Nucleated RBC % 0.0 PT 10.7 INR 1.0 Sodium 139 Potassium 4.1 Chloride 105 Carbon Dioxide 19 L Anion Gap 15.0 H BUN 20 Creatinine 1.0 Estimated GFR (MDRD) 87 L Glucose 202 H Calcium 9.7 Total Bilirubin 0.6 AST 27 ALT 33 Alkaline Phosphatase 69 Total Protein 7.7 Albumin 4.3 Globulin 3.4 Albumin/Globulin Ratio 1.3 PD Medical Decision Making - ED course ED course: 32-year-old gentleman with dark stools, rectal pain abdominal pain, benign exam. This is all been ongoing for 2 years. He also has an ancillary complaint of phimosis. Blood work normal, CBC without evidence of anemia, CMP normal. He was unable to give a stool sample here and given outpatient lab requisition for ova and parasites as he had a specific concern about that and guaiac. There is no emergency medical condition but he can follow-up with his primary care physician for referral to GI or surgery and urology for the phimosis. Departure - Departure Disposition: 01 Home, Self Care Clinical Impression: Dark stools, Phimosis Condition: Good Comments: Regarding the dark stools, your blood counts are very stable over many years suggesting no evidence of ongoing bleeding. I have written a outpatient requisition for a ova and parasites, but seems reasonable to follow-up with your primary care physician for referral for potential gastroenterology referral. Also regarding the phimosis you should follow-up with the urologist, the closest is in [place], the phone number is [phone]. Return for new or worsening symptoms.
== END 2023-01-08 17:45 | disposition home or self-care (01) ==
LOC: ED 16:12
DX: R19.5 Other fecal abnormalities (principal); N47.1 Phimosis
CPT/HCPCS: 36415; 80053; 85025; 85610; 87177; 99283

== ENCOUNTER 2023-06-05 09:57 | Outpatient (CLI) | payer MEDICARE, MEDICAID ==
[2023-06-05 12:11] LABS: BASOPHILS % (AUTO) 0.5 %; EOSINOPHILS # (AUTO) 0.1 10^3/uL (0.0-0.7); EOSINOPHILS % (AUTO) 1.5 %; HCT - HEMATOCRIT 47.4 % (42.0-52.0); HGB - HEMOGLOBIN 16.6 g/dL (14.0-18.0); LYMPHOCYTES # (AUTO) 2.5 10^3/uL (1.5-3.5); LYMPHOCYTES % (AUTO) 30.9 %; MEAN CORPUSCULAR HEMOGLOBIN 29.5 pg (27.0-31.0); MEAN CORPUSCULAR VOLUME 84.2 fL (80.0-94.0); MEAN PLATELET VOLUME 9.3 fL (7.4-11.4); MONOCYTES # (AUTO) 0.5 10^3/uL (0.0-1.0); MONOCYTES % (AUTO) 5.8 %; NEUTROPHILS # (AUTO) 4.8 10^3/uL (1.5-6.6); NEUTROPHILS % (AUTO) 60.8 %; PLT - PLATELET COUNT 322 10^3/uL (130-450); RED BLOOD COUNT 5.63 10^6/uL (4.70-6.10); RED CELL DISTRIBUTION WIDTH 12.7 % (12.0-15.0); WHITE BLOOD COUNT 7.9 x10^3/uL (4.8-10.8)
[2023-06-05 13:11] LABS: ALBUMIN 4.3 g/dL (3.2-5.5); ALBUMIN/GLOBULIN RATIO 1.2 (1.0-2.2); ALKALINE PHOSPHATASE 79 IU/L (42-121); ALT ALANINE AMINOTRANSFERASE 16 IU/L (10-60); AST ASPARTATE AMINOTRANSFERASE 12 IU/L (10-42); BILIRUBIN,TOTAL 0.7 mg/dL (0.2-1.0); BUN - BLOOD UREA NITROGEN 31 mg/dL (6-20); CALCIUM 9.3 mg/dL (8.5-10.3); CARBON DIOXIDE - CO2 21 mmol/L (21-32); CHLORIDE 104 mmol/L (101-111); CHOL/HDL RATIO 8.4 (<5.0); CHOLESTEROL 295 mg/dL; CREATININE 1.2 mg/dL (0.6-1.2); GFR - MDRD 70 (>89); GLUCOSE 328 mg/dL (70-100); HDL CHOLESTEROL 35 mg/dL; SODIUM 135 mmol/L (135-145); TOTAL PROTEIN 7.8 g/dL (6.7-8.2); TRIGLYCERIDES 488 mg/dL
[2023-06-05 13:14] LABS: THYROID STIMULATING HORMONE 3.43 uIU/mL (0.34-5.60)
[2023-06-05 13:20] LABS: ESTIMATED AVERAGE GLUCOSE 209 mg/dL (70-100); HEMOGLOBIN A1c% 8.9 % (4.27-6.07)
[2023-06-05 13:33] LABS: CREATININE,URINE 152.2 mg/dL; MICROALBUM/CREATININE RATIO,UR 4.6 ug/mg (<30.0); MICROALBUMIN,URINE 0.7 mg/dL (0-300.0)
[2023-06-05 13:49] LABS: LDL CHOLESTEROL,DIRECT 182 mg/dL; LDLD/HDL RATIO 5.2 (<3.6)
== END 2023-06-05 09:58 | disposition home or self-care (01) ==
LOC: LAB.N 09:57
PROVIDERS: ATTEND Physician Assistant
DX: E11.42 Type 2 diabetes mellitus with diabetic polyneuropathy (principal)
CPT/HCPCS: 36415; 80053; 80061; 82043; 82570; 83036; 83721; 84443; 85025

== ENCOUNTER 2023-06-29 09:53 | Outpatient (CLI) | payer MEDICARE, MEDICAID ==
[2023-06-29 12:44] LABS: BASOPHILS # (AUTO) 0.1 10^3/uL (0.0-0.1); BASOPHILS % (AUTO) 0.6 %; EOSINOPHILS # (AUTO) 0.2 10^3/uL (0.0-0.7); EOSINOPHILS % (AUTO) 1.9 %; HCT - HEMATOCRIT 45.7 % (42.0-52.0); HGB - HEMOGLOBIN 15.7 g/dL (14.0-18.0); LYMPHOCYTES # (AUTO) 2.5 10^3/uL (1.5-3.5); LYMPHOCYTES % (AUTO) 29.4 %; MEAN CORPUSCULAR HEMOGLOBIN 29.5 pg (27.0-31.0); MEAN CORPUSCULAR HGB CONC 34.4 g/dL (32.0-36.0); MEAN CORPUSCULAR VOLUME 85.7 fL (80.0-94.0); MEAN PLATELET VOLUME 9.4 fL (7.4-11.4); MONOCYTES # (AUTO) 0.5 10^3/uL (0.0-1.0); MONOCYTES % (AUTO) 5.6 %; NEUTROPHILS # (AUTO) 5.3 10^3/uL (1.5-6.6); PLT - PLATELET COUNT 258 10^3/uL (130-450); RED BLOOD COUNT 5.33 10^6/uL (4.70-6.10); RED CELL DISTRIBUTION WIDTH 12.6 % (12.0-15.0); WHITE BLOOD COUNT 8.5 x10^3/uL (4.8-10.8)
[2023-06-29 13:12] LABS: ALBUMIN 4.5 g/dL (3.2-5.5); ALBUMIN/GLOBULIN RATIO 1.7 (1.0-2.2); ALKALINE PHOSPHATASE 70 IU/L (42-121); ALT ALANINE AMINOTRANSFERASE 12 IU/L (10-60); AST ASPARTATE AMINOTRANSFERASE 10 IU/L (10-42); BILIRUBIN,TOTAL 0.3 mg/dL (0.2-1.0); BUN - BLOOD UREA NITROGEN 20 mg/dL (6-20); CALCIUM 9.1 mg/dL (8.5-10.3); CARBAMAZEPINE (TEGRETOL) 7.8 ug/mL; CARBON DIOXIDE - CO2 21 mmol/L (21-32); CHLORIDE 105 mmol/L (101-111); CREATININE 1.1 mg/dL (0.6-1.3); GFR - MDRD 78 (>89); GLUCOSE 367 mg/dL (74-104); POTASSIUM 4.2 mmol/L (3.5-4.5); SODIUM 135 mmol/L (135-145); TOTAL PROTEIN 7.1 g/dL (6.4-8.9)
[2023-06-29 13:36] LABS: ESTIMATED AVERAGE GLUCOSE 232 mg/dL (70-100); HEMOGLOBIN A1c% 9.7 % (4.27-6.07)
== END 2023-06-29 09:54 | disposition home or self-care (01) ==
LOC: LAB.N 09:53
DX: F44.5 Conversion disorder with seizures or convulsions (principal); Z51.81 Encounter for therapeutic drug level monitoring; E11.42 Type 2 diabetes mellitus with diabetic polyneuropathy
CPT/HCPCS: 36415; 80053; 80156; 83036; 85025

== ENCOUNTER 2023-08-25 10:15 | Outpatient (CLI) | payer MEDICARE, MEDICAID ==
[2023-08-25 13:22] LABS: FERRITIN 75.6 ng/mL (23.9-336.2)
== END 2023-08-25 10:16 | disposition home or self-care (01) ==
LOC: LAB.N 10:15
PROVIDERS: ATTEND Internal Medicine Sleep Medicine
DX: G25.81 Restless legs syndrome (principal); E83.10 Disorder of iron metabolism, unspecified
CPT/HCPCS: 36415; 82728; 83540; 84466

== ENCOUNTER 2024-01-05 09:08 | Outpatient (CLI) | payer MEDICARE, MEDICAID ==
[2024-01-05 12:19] LABS: BASOPHILS # (AUTO) 0.1 10^3/uL (0.0-0.1); BASOPHILS % (AUTO) 0.5 %; EOSINOPHILS # (AUTO) 0.2 10^3/uL (0.0-0.7); EOSINOPHILS % (AUTO) 2.1 %; HCT - HEMATOCRIT 46.9 % (42.0-52.0); HGB - HEMOGLOBIN 16.6 g/dL (14.0-18.0); LYMPHOCYTES # (AUTO) 2.5 10^3/uL (1.5-3.5); LYMPHOCYTES % (AUTO) 25.7 %; MEAN CORPUSCULAR HEMOGLOBIN 30.3 pg (27.0-31.0); MEAN CORPUSCULAR HGB CONC 35.4 g/dL (32.0-36.0); MEAN CORPUSCULAR VOLUME 85.7 fL (80.0-94.0); MEAN PLATELET VOLUME 9.4 fL (7.4-11.4); MONOCYTES # (AUTO) 0.5 10^3/uL (0.0-1.0); MONOCYTES % (AUTO) 5.2 %; NEUTROPHILS # (AUTO) 6.5 10^3/uL (1.5-6.6); NEUTROPHILS % (AUTO) 66.1 %; PLT - PLATELET COUNT 291 10^3/uL (130-450); RED BLOOD COUNT 5.47 10^6/uL (4.70-6.10); RED CELL DISTRIBUTION WIDTH 12.5 % (12.0-15.0); WHITE BLOOD COUNT 9.8 x10^3/uL (4.8-10.8)
[2024-01-05 12:39] LABS: ALBUMIN 4.7 g/dL (3.2-5.5); ALBUMIN/GLOBULIN RATIO 1.9 (1.0-2.2); ALKALINE PHOSPHATASE 78 IU/L (42-121); ALT ALANINE AMINOTRANSFERASE 17 IU/L (10-60); AST ASPARTATE AMINOTRANSFERASE 15 IU/L (10-42); BILIRUBIN,TOTAL 0.4 mg/dL (0.2-1.0); BUN - BLOOD UREA NITROGEN 13 mg/dL (6-20); CALCIUM 9.5 mg/dL (8.5-10.3); CARBON DIOXIDE - CO2 26 mmol/L (21-32); CHLORIDE 102 mmol/L (101-111); CHOL/HDL RATIO 6.6 (<5.0); CHOLESTEROL 178 mg/dL; CREATININE 1.1 mg/dL (0.6-1.3); GFR - MDRD 78 (>89); GLUCOSE 294 mg/dL (74-104); HDL CHOLESTEROL 27 mg/dL; LDL CHOLESTEROL,CALCULATED 97 mg/dL; LDL/HDL RATIO 3.6 (<3.6); SODIUM 137 mmol/L (135-145); TOTAL PROTEIN 7.2 g/dL (6.4-8.9); TRIGLYCERIDES 268 mg/dL (48-352); VLDL CHOLESTEROL 54 mg/dL
[2024-01-05 13:00] LABS: CREATININE,URINE 18.2 mg/dL; ESTIMATED AVERAGE GLUCOSE 197 mg/dL (70-100); HEMOGLOBIN A1c% 8.5 % (4.27-6.07)
[2024-01-05 13:09] LABS: MICROALBUMIN,URINE < 0.7 mg/dL
== END 2024-01-05 09:09 | disposition home or self-care (01) ==
LOC: LAB.N 09:08
PROVIDERS: ATTEND Physician Assistant
DX: E11.42 Type 2 diabetes mellitus with diabetic polyneuropathy (principal)
CPT/HCPCS: 36415; 80053; 80061; 82043; 82570; 83036; 83721; 85025

== ENCOUNTER 2024-04-14 09:16 | Outpatient (CLI) | payer MEDICARE, MEDICAID ==
[2024-04-14 12:14] LABS: ESTIMATED AVERAGE GLUCOSE 203 mg/dL (70-100); HEMOGLOBIN A1c% 8.7 % (4.27-6.07)
[2024-04-14 12:20] LABS: CALCIUM 9.8 mg/dL (8.5-10.3); CREATININE 1.1 mg/dL (0.6-1.3); POTASSIUM 3.8 mmol/L (3.5-4.5)
== END 2024-04-14 09:17 | disposition home or self-care (01) ==
LOC: LAB.N 09:16
PROVIDERS: ATTEND Physician Assistant
DX: E11.42 Type 2 diabetes mellitus with diabetic polyneuropathy (principal)
CPT/HCPCS: 36415; 80048; 83036

== ENCOUNTER 2024-07-20 10:12 | Outpatient (CLI) | payer MEDICARE, MEDICAID ==
[2024-07-20 12:37] LABS: CALCIUM 9.1 mg/dL (8.5-10.3); CARBAMAZEPINE (TEGRETOL) 5.4 ug/mL
[2024-07-20 12:45] LABS: ESTIMATED AVERAGE GLUCOSE 212 mg/dL (70-100)
== END 2024-07-20 10:13 | disposition home or self-care (01) ==
LOC: LAB.N 10:12
PROVIDERS: ATTEND Physician Assistant
DX: F44.5 Conversion disorder with seizures or convulsions (principal); E11.42 Type 2 diabetes mellitus with diabetic polyneuropathy
CPT/HCPCS: 36415; 80048; 80156; 81599; 83036